=== PATIENT | male | born 1965 | race Caucasian/White ===

== ENCOUNTER 2018-02-23 20:06 | Observation (INO) | payer OTHER, SELFPAY ==
--- NOTE | 2018-02-23 21:01 | RAD REPORT ---
EXAM DESCRIPTION: CT - Head Brain Wo Cont - 02/23/2018 8:40 pm CLINICAL HISTORY: Syncope COMPARISON: None. TECHNIQUE: Computed axial tomography of the head was obtained. IV contrast was not requested. All CT scans are performed using dose optimization technique as appropriate and may include automated exposure control or mA/KV adjustment according to patient size. FINDINGS: An intracranial bleed is not seen . The ventricles are normal in caliber. No extra-axial fluid collection is noted. Fluid within the sinuses/ mastoids is not seen. IMPRESSION: No acute intracranial abnormality is seen. If patient's symptoms persist MRI of the bra in would be recommended.
--- NOTE | 2018-02-23 21:02 | RAD REPORT ---
EXAM DESCRIPTION: Hiral Single View02/23/2018 8:47 pm CLINICAL HISTORY: Chest pain COMPARISON: 2016 FINDINGS: The lungs appear clear of acute infiltrate. The heart is normal size. Postsurgical change s involve the chest IMPRESSION: No acute abnormalities displayed
[2018-02-23 21:07] LABS: Absolute Lymphocytes (CBC) 0.7 K/uL (0.7-4.9); Absolute Monocytes 0.4 K/uL (0.1-1.3); Absolute Neutrophil 10.4 K/uL (1.8-8.0); Basophils % 0.2 % (0-1.3); Eosinophils % 0.5 % (0-4.4); Hematocrit 46.2 % (39.6-49.0); MCV 92.5 fL (80-100); MPV 8.1 fL (7.6-11.3); Monocytes % 3.8 % (3.3-12.3); RBC Red Blood Cell Count 4.99 M/uL (4.33-5.43)
[2018-02-23 21:13] LABS: Protime INR 1.08
[2018-02-23 21:31] LABS: Bicarbonate 28 mEq/L (21-31); Glucose Level 181 mg/dL (65-120); Potassium 4.2 mEq/L (3.6-5.0); Sodium Level 136 mEq/L (135-145)
[2018-02-23 21:36] LABS: Blood Morphology Comment NOT SEEN (NOT SEEN); Platelet Estimate ADEQ; Urine White Blood Cell Casts OK
[2018-02-23 21:37] LABS: ALT/SGPT 24 IU/L (10-60); AST/SGOT 19 IU/L (10-42); Albumin 4.1 g/dL (3.2-5.5); Alkaline Phosphatase 91 IU/L (42-121); BUN Blood Urea Nitrogen 19 mg/dL (6-20); Bilirubin Direct 0.1 mg/dL (0-0.2); Bilirubin Total 0.9 mg/dL (0.3-1.2); Creatine Phosphokinase 110 IU/L (22-269); Magnesium 1.8 mg/dL (1.8-2.5); Protein, Total 7.2 g/dL (6.0-8.3)
--- NOTE | 2018-02-23 21:40 | EDPHYS ---
Physician Documentation [facility] Name: Maximiliano Springer Age: 52 yrs Sex: Male : 1965 Arrival Date: 02/23/2018 Time: 20:07 Bed 13 Private MD: ED Physician Abiodun Wallace HPI: 02/23 21:35 This 52 yrs old Male presents to ER via Ambulatory with complaints of Passed jr8 Out Prior To Arrival, Probable Seizure, Headache. 21:35 The patient has experienced syncope, became unresponsive. Onset: The symptoms/episode jr8 began/occurred acutely, today. Duration: This was a single episode, that lasted 5 minute(s). Context: the episode(s) was witnessed, by family, daughter, occurred at home, occurred while the patient was at rest, sitting, Just prior to the episode the patient experienced palpitations. Associated injury: The patient did not suffer any apparent associated injury. Associated signs and symptoms: The patient has no apparent associated signs or symptoms. Current symptoms: headache, that is mild. It is unknown whether or not the patient has had similar symptoms in the past. The patient has not recently seen a physician. Historical: - Allergies: 20:15 NKDA; aa1 - Home Meds: 20:15 aspirin 81 mg Oral TbEC 1 tab once daily [Active]; atorvastatin 40 mg Oral tab 1 tab aa1 once daily [Active]; lisinopril 20 mg Oral tab 1 tab once daily [Active]; metformin 500 mg Oral tr24 2 tabs once daily [Active]; - PMHx: 20:15 CAD; Diabetes - NIDDM; Hypertension; aa1 - PSHx: 20:15 CABG; Heart stents; aa1 - Immunization history:: Flu vaccine is not up to date. - Social history:: Smoking status: Patient/guardian denies using tobacco. ROS: 21:35 Eyes: Negative for injury, pain, redness, and discharge, ENT: Negative for injury, jr8 pain, and discharge, Neck: Negative for injury, pain, and swelling, Cardiovascular: Negative for chest pain, palpitations, and edema, Respiratory: Negative for shortness of breath, cough, wheezing, and pleuritic chest pain, Abdomen/GI: Negative for abdominal pain, nausea, vomiting, diarrhea, and constipation, Back: Negative for injury and pain, MS/Extremity: Negative for injury and deformity, Skin: Negative for injury, rash, and discoloration. 21:35 Neuro: Positive for headache, syncope, weakness. Exam: 21:35 Head/Face: Normocephalic, atraumatic. Eyes: Pupils equal round and reactive to light, jr8 extra-ocular motions intact. Lids and lashes normal. Conjunctiva and sclera are non-icteric and not injected. Cornea within normal limits. Periorbital areas with no swelling, redness, or edema. ENT: Nares patent. No nasal discharge, no septal abnormalities noted. Tympanic membranes are normal and external auditory canals are clear. Oropharynx with no redness, swelling, or masses, exudates, or evidence of obstruction, uvula midline. Mucous membranes moist. Neck: Trachea midline, no thyromegaly or masses palpated, and no cervical lymphadenopathy. Supple, full range of motion without nuchal rigidity, or vertebral point tenderness. No Meningismus. Cardiovascular: Regular rate and rhythm with a normal S1 and S2. No gallops, murmurs, or rubs. Normal PMI, no JVD. No pulse deficits. Respiratory: Lungs have equal breath sounds bilaterally, clear to auscultation and percussion. No rales, rhonchi or wheezes noted. No increased work of breathing, no retractions or nasal flaring. Abdomen/GI: Soft, non-tender, with normal bowel sounds. No distension or tympany. No guarding or rebound. No evidence of tenderness throughout. Back: No spinal tenderness. No costovertebral tenderness. Full range of motion. Skin: Warm, dry with normal turgor. Normal color with no rashes, no lesions, and no evidence of cellulitis. MS/ Extremity: Pulses equal, no cyanosis. Neurovascular intact. Full, normal range of motion. Neuro: Awake and alert, GCS 15, oriented to person, place, time, and situation. Cranial nerves II-XII grossly intact. Motor strength 5/5 in all extremities. Sensory grossly intact. Cerebellar exam normal. Normal gait. Vital Signs: 20:15 BP 107 / 81; Pulse 97; Resp 16; Temp 97.7(O); Pulse Ox 100% on R/A; Weight 68.49 kg; aa1 Height 5 ft. 7 in. (170.18 cm); Pain 7/10; 20:45 BP 113 / 76; Pulse 88; Resp 11; Pulse Ox 98% on R/A; aj1 21:21 BP 109 / 72; Pulse 95; Resp 18; Pulse Ox 99% ; aj1 22:50 BP 105 / 79; Pulse 94; Resp 16; Pulse Ox 98% on R/A; Pain 0/10; aa1 20:15 Body Mass Index 23.65 (68.49 kg, 170.18 cm) aa1 NIH Stroke Scale Scores: 20:45 NIHSS Score: 0 aj1 Yolanda Coma Score: 20:15 Eye Response: spontaneous(4). Verbal Response: oriented(5). Motor Response: obeys aa1 commands(6). Total: 15. MDM: 20:27 Patient medically screened. jr8 21:35 Data reviewed: vital signs, nurses notes, lab test result(s), EKG, radiologic studies, jr8 CT scan, plain films. Data interpreted: Pulse oximetry: on room air is 99 %. Interpretation: normal. Counseling: I had a detailed discussion with the patient and/or guardian regarding: the historical points, exam findings, and any diagnostic results supporting the discharge/admit diagnosis, lab results, radiology results, the need for further work-up and treatment in the hospital. Physician consultation: Jerry Corral MD was called at 21:37, was contacted at 21:37, regarding admission, to the telemetry unit. consult, patient's condition, and will see patient. ED course: Patient had arrested once before in the hospital from probably arrythmia prior to bypass surgery. Frederick palpitation like feeling prior to episode. Discussed with patient that although nothing acutely has been seen thus yet it would be best to observe over night at minimum with heart history to insure he remains stable. Patient agrees and will stay . 02/23 20:27 Order name: Basic Metabolic Panel; Complete Time: 21:39 02/23 20:27 Order name: BNP; Complete Time: 21:39 02/23 20:27 Order name: CBC with Diff; Complete Time: :39 02/23 20:27 Order name: CPK; Complete Time: 21:39 02/23 20:27 Order name: LFT's; Complete Time: 21:39 02/23 20:27 Order name: Magnesium; Complete Time: 21:39 02/23 20:27 Order name: PT-INR; Complete Time: 21:23 8 02/23 20:27 Order name: Troponin (emerg Dept Use Only); Complete Time: 21:41 02/23 20:27 Order name: XRAY Chest (1 view); Complete Time: 21:23 02/23 20:27 Order name: EKG; Complete Time: 20:28 jr8 02/23 20:27 Order name: Cardiac monitoring; Complete Time: 20:36 8 02/23 20:27 Order name: EKG - Nurse/Tech; Complete Time: 20:36 8 02/23 20:27 Order name: CT Head Brain wo Cont; Complete Time: 21:23 jr8 02/23 21:11 Order name: CBC Smear Scan; Complete Time: 21:39 EDLA 02/23 20:27 Order name: IV Saline Lock; Complete Time: 21:06 02/23 20:27 Order name: Labs collected and sent; Complete Time: 21:06 02/23 20:27 Order name: O2 Per Protocol; Complete Time: 20:36 02/23 20:27 Order name: O2 Sat Monitoring; Complete Time: 20:36 Administered Medications: No medications were administered Disposition: 02/24 09:15 Co-signature as Attending Physician, Abiodun Wallace MD I agree with the assessment and dina plan of care. Disposition: 02/23/18 21:39 Hospitalization ordered by Jerry Corral for Observation. Preliminary diagnosis is Syncope and collapse. - Bed requested for Telemetry/MedSurg (observation). - Status is Observation. aa1 - Condition is Stable. - Problem is new. - Symptoms have improved. UTI on Admission? No NIH Stroke Scale - NIH Stroke Score Date: 02/23/2018 Time: 20:45 Total Score = 0 1a. Level of Consciousness (LOC) - 0(Alert) 1b. Level of Consciousness (LOC) (Year \T\ Age) - 0(Both) 1c. LOC Commands (Open \T\ Closes Eyes/At Risk Paraprofessional) - 0(Both) 2. Best Gaze (Lateral Gaze Paresis) - 0(Normal) 3. Visual Field Loss - 0(No visual loss) 4. Facial Palsy - 0(Normal) 5a. Left Arm: Motor (10-second hold) - 0(No drift) 5b. Right Arm: Motor (10-second hold) - 0(No drift) 6a. Left Leg: Motor (5-second hold - always test supine) - 0(No drift) 6b. Right Leg: Motor (5-second hold - always test supine) - 0(No drift) 7. Limb Ataxia (finger/nose \T\ heel/garcía - test with eyes open) - 0(Absent) 8. Sensory Loss (pinprick arms/legs/face) - 0(Normal) 9. Best Language: Aphasia (description/naming/reading) - 0(No aphasia) 10. Dysarthria (speech clarity - read or repeat words) - 0(Normal) 11. Extinction and Inattention (visual/tactile/auditory/spatial/personal) - 0(No abnormality) Initials: aj1 Signatures: Dispatcher [employer] Yi Lord, RN RN Esperanza Acosta RN RN aa1 Abiodun Wallace MD MD cha Roszak, Josh, PA PA jr8
--- NOTE | 2018-02-23 21:40 | ER ---
Nurse's Notes [facility] Name: Maximiliano Springer Age: 52 yrs Sex: Male : 1965 Arrival Date: 02/23/2018 Time: 20:07 Bed 13 Private MD: Diagnosis: Syncope and collapse Presentation: 02/23 20:11 Presenting complaint: Patient states: he was watching TV and passed out. States he just aa1 remembers waking up and his drink was spilled. Daughter states pt stiffened up and would not respond. Reports episode lasted less than 2 mins and pt then vomited afterwards. Transition of care: patient was not received from another setting of care. Onset of symptoms was February 23, 2018 at 19:20. Care prior to arrival: None. 20:11 Method Of Arrival: Ambulatory aa1 20:11 Acuity: SANDRA 3 aa1 Triage Assessment: 20:15 General: Appears in no apparent distress. comfortable, Behavior is calm, cooperative, aa1 appropriate for age. Historical: - Allergies: 20:15 NKDA; aa1 - Home Meds: 20:15 aspirin 81 mg Oral TbEC 1 tab once daily [Active]; atorvastatin 40 mg Oral tab 1 tab aa1 once daily [Active]; lisinopril 20 mg Oral tab 1 tab once daily [Active]; metformin 500 mg Oral tr24 2 tabs once daily [Active]; - PMHx: 20:15 CAD; Diabetes - NIDDM; Hypertension; aa1 - PSHx: 20:15 CABG; Heart stents; aa1 - Immunization history:: Flu vaccine is not up to date. - Social history:: Smoking status: Patient/guardian denies using tobacco. Screenin:45 Abuse screen: Denies threats or abuse. Denies injuries from another. aj1 20:45 Nutritional screening: No deficits noted. Tuberculosis screening: No symptoms or risk aj1 factors identified. Assessment: 20:45 General: Appears in no apparent distress. comfortable, Behavior is calm, cooperative, aj1 appropriate for age. Pain: Denies pain. Neuro: Level of Consciousness is awake, alert, obeys commands, Oriented to person, place, time, situation, Junior Web Designer are equal bilaterally Moves all extremities. Full function Speech is normal, Facial symmetry appears normal, Pupils are PERRLA, Intact Reports headache a syncopal episode Denies blurred vision paresthesias numbness diplopia. Cardiovascular: Reports chest pain, nausea, palpitations, chest pain lasted for 2 to 3 minutes after syncopal episode Heart tones S1 S2 present Patient's skin is warm and dry. Rhythm is regular. Respiratory: Airway is patent Respiratory effort is even, unlabored, Respiratory pattern is regular, symmetrical, Breath sounds are clear bilaterally. GI: No signs and/or symptoms were reported involving the gastrointestinal system. : No signs and/or symptoms were reported regarding the genitourinary system. EENT: No signs and/or symptoms were reported regarding the EENT system. Derm: No signs and/or symptoms reported regarding the dermatologic system. Skin is pink, warm \T\ dry. normal. Musculoskeletal: No signs and/or symptoms reported regarding the musculoskeletal system. Circulation, motion, and sensation intact. 21:20 Reassessment: Patient appears in no apparent distress at this time. No changes from aj1 previously documented assessment. Patient and/or family updated on plan of care and expected duration. Pain level reassessed. Patient is alert, oriented x 3, equal unlabored respirations, skin warm/dry/pink. 22:54 Reassessment: Patient appears in no apparent distress at this time. Patient is alert, aa1 oriented x 3, equal unlabored respirations, skin warm/dry/pink. Report given to Aracely on 4th floor Patient states feeling better. Vital Signs: 20:15 BP 107 / 81; Pulse 97; Resp 16; Temp 97.7(O); Pulse Ox 100% on R/A; Weight 68.49 kg; aa1 Height 5 ft. 7 in. (170.18 cm); Pain 7/10; 20:45 BP 113 / 76; Pulse 88; Resp 11; Pulse Ox 98% on R/A; aj1 21:21 BP 109 / 72; Pulse 95; Resp 18; Pulse Ox 99% ; aj1 22:50 BP 105 / 79; Pulse 94; Resp 16; Pulse Ox 98% on R/A; Pain 0/10; aa1 20:15 Body Mass Index 23.65 (68.49 kg, 170.18 cm) aa1 Yolanda Coma Score: 20:15 Eye Response: spontaneous(4). Verbal Response: oriented(5). Motor Response: obeys aa1 commands(6). Total: 15. NIH Stroke Scale Scores: 20:45 NIHSS Score: 0 aj1 ED Course: 20:07 Patient arrived in ED. as 20:14 Triage completed. aa1 20:15 Arm band placed on left wrist. Patient placed in an exam room, on a stretcher. aa1 20:27 Ace Luther PA is PHCP. jr8 20:27 Abiodun Wallace MD is Attending Physician. jr8 20:36 EKG done, by ED staff, reviewed by Ace ACEVEDO. dh3 20:[address] via wheelchair. nj 20:40 CT completed. Patient tolerated procedure well. Patient moved back from CT. nj 20:40 CT Head Brain wo Cont In Process Unspecified. EDMS 20:45 X-ray completed. Patient tolerated procedure well. ml 20:45 Karen Harley RN is Primary Nurse. aj1 20:45 Patient moved back from radiology. ml 20:45 Patient has correct armband on for positive identification. Bed in low position. Call aj1 light in reach. Side rails up X 1. Seizure precautions initiated. conveyor monitor on. Pulse ox on. NIBP on. 20:45 No provider procedures requiring assistance completed. aj1 20:46 XRAY Chest (1 view) In Process Unspecified. EDMS 21:39 Jerry Corral MD is Hospitalizing Provider. jr8 22:05 Report given to LAYTON Mata. aj1 22:54 Patient admitted, IV remains in place. aa1 Administered Medications: No medications were administered Outcome: 21:39 Decision to Hospitalize by Provider. jr8 23:02 Patient left the ED. aa1 NIH Stroke Scale - NIH Stroke Score Date: 02/23/2018 Time: 20:45 Total Score = 0 1a. Level of Consciousness (LOC) - 0(Alert) 1b. Level of Consciousness (LOC) (Year \T\ Age) - 0(Both) 1c. LOC Commands (Open \T\ Closes Eyes/Stage Builder) - 0(Both) 2. Best Gaze (Lateral Gaze Paresis) - 0(Normal) 3. Visual Field Loss - 0(No visual loss) 4. Facial Palsy - 0(Normal) 5a. Left Arm: Motor (10-second hold) - 0(No drift) 5b. Right Arm: Motor (10-second hold) - 0(No drift) 6a. Left Leg: Motor (5-second hold - always test supine) - 0(No drift) 6b. Right Leg: Motor (5-second hold - always test supine) - 0(No drift) 7. Limb Ataxia (finger/nose \T\ heel/garcía - test with eyes open) - 0(Absent) 8. Sensory Loss (pinprick arms/legs/face) - 0(Normal) 9. Best Language: Aphasia (description/naming/reading) - 0(No aphasia) 10. Dysarthria (speech clarity - read or repeat words) - 0(Normal) 11. Extinction and Inattention (visual/tactile/auditory/spatial/personal) - 0(No abnormality) Initials: aj1 Signatures: Dispatcher [employer] Karen Gordon RN RN aj1 Esperanza Marshall RN RN aa1 Paul, Neha Peña, Ace Boothe PA PA jr8 Matthias Jennings Deanna 3
[2018-02-23] MEDS ORDERED: ALPRAZOLAM 0.25 MG TABLET PO PRN (22:12)
[2018-02-23] MEDS ORDERED: ACETAMINOPHEN 500 MG TAB PO PRN (22:12)
[2018-02-23] MEDS ORDERED: MORPHINE 4 MG/ML SYR IV PRN (22:12)
[2018-02-23 23:18] VITALS: O2SAT 98
[2018-02-23 23:43] VITALS: BMI 23.5
--- NOTE | 2018-02-24 05:08 | P.HP ---
Certification for Inpatient Patient admitted to: Observation With expected LOS: <2 Midnights Patient will require the following post-hospital care: None Practitioner: I am a practitioner with admitting privileges, knowledge of patient current condition, hospital course, and medical plan of care. Services: Services provided to patient in accordance with Admission requirements found in Title 42 Section 412.3 of the Code of Federal Regulations Patient History Date of Service: 02/23/18 Reason for admission: Syncope with possible seizure History of Present Illness: Patient is a 52-year-old gentleman who comes into the hospital after a syncopal event. Patient states he was at his apartment watching television when he suddenly passed out. He apparently bit his tongue & his arms were extended very tightly according to his family. Patient's was brought into the emergency room for further evaluation. In the emergency room he had EKG and troponins which were negative. He was monitored closely and he will be admitted for observation. Patient has had similar episode occur in the past. A few years ago he had a cardiac catheterization on a Wednesday and was told that he would need bypass surgery on Wednesday. He was discharged home and he decided to stay with a family friend in [place] as he was getting bypass surgery on Wednesday. Wednesday morning while watching TV he had a cardiac arrest. He was taken to [facility] were he had a three-vessel bypass. He states he had an arrhythmia but he does not know what type. He was not offered pacemaker/defibrillator. He does not remember having a life vest. He recently saw his air conditioning mechanic industrial in [place] and had a stress test which was negative. He does not know how well his heart is functioning but he was recently put on Toprol by his air conditioning mechanic industrial in [place]. At this time he will be admitted to the hospital for further evaluation. Allergies No Known Drug Allergies Allergy (Verified 02/29/16 21:52) Unknown Home Medications: Aspirin Chewable [Aspirin Chewable*] 81 mg PO DAILY 02/29/16 Atorvastatin Calcium 40 mg PO DAILY 02/29/16 Carvedilol [Coreg*] 25 mg PO BID 02/29/16 Isosorbide Mononitrate [Isosorbide Mononitrate ER] 30 mg PO DAILY 02/29/16 Lisinopril 20 mg PO DAILY 02/29/16 Metformin HCl 500 mg PO BID 04/16/16 - Past Medical/Surgical History Has patient received pneumonia vaccine in the past: No Diabetic: Yes -: HTN -: DM -: Hyperlipidemia -: Coronary artery disease -: Cardiac arrhythmia/cardiac arrest -: heart stent -: triple by-pass - Family History Father Medical History: Stroke Mother Notes: no medical hx - Social History Smoking Status: Never smoker Alcohol use: No CD- Drugs: No Caffeine use: No Place of Residence: Home Review of Systems 10-point ROS is otherwise unremarkable Physical Examination - Vital Signs Temperature: 98.4 F Blood Pressure: 99/67 Pulse: 88 Respirations: 18 Pulse Ox (%): 100 - Physical Exam General: Alert, In no apparent distress, Oriented x3 HEENT: Atraumatic, PERRLA, Mucous membr. moist/pink, EOMI, Sclerae nonicteric Neck: Supple, 2+ carotid pulse no bruit, No LAD, Without JVD or thyroid abnormality Respiratory: Clear to auscultation bilaterally, Normal air movement Cardiovascular: Regular rate/rhythm, Normal S1 S2, No murmurs Gastrointestinal: Normal bowel sounds, Soft and benign, Non-distended, No tenderness Musculoskeletal: No clubbing, No swelling, No tenderness Integumentary: No rashes Neurological: Normal gait, Normal speech, Normal strength at 5/5 x4 extr, Normal tone, Sensation intact, Cranial nerves 3-12 intact, Normal affect Lymphatics: No axilla or inguinal lymphadenopathy - Studies Laboratory Data (last 24 hrs) 02/23/18 20:55: PT 12.8 H, INR 1.08 02/23/18 20:55: WBC 11.6 H, Hgb 16.0, Hct 46.2, Plt Count 182 02/23/18 20:55: B-Natriuretic Peptide 34 02/23/18 20:55: Sodium 136, Potassium 4.2, BUN 19, Creatinine 0.81, Glucose 181 H, Magnesium 1.8, Total Bilirubin 0.9, AST 19, ALT 24, Alkaline Phosphatase 91 Assessment & Plan - Problems (Diagnosis) (1) Syncope Current Visit: Yes Status: Acute (2) Seizure disorder Current Visit: Yes Status: Acute (3) Coronary artery disease Current Visit: Yes Status: Acute (4) History of heart bypass surgery Current Visit: Yes Status: Acute (5) History of cardiac arrest Current Visit: Yes Status: Acute - Plan Plan: 1. Will monitor him on telemetry 2. Cardiology consultation 3. Echocardiogram 4. Will also do an EEG 5. Continue home cardiac meds including beta-everton and anti-platelet therapy 6. Monitor hemodynamics closely 7. GI and DVT prophylaxis - Advance Directives Does patient have a Living Will: No Does patient have a Durable POA for Healthcare: No - Code Status/Comfort Care Code Status Assessed: Yes Code Status: Full Code Critical Care: No Time Spent Managing PTS Care (In Minutes): 50
[2018-02-24] MEDS ORDERED: PNEUMOCOCCAL VACCINE 0.5 ML IMVAC ONE (07:00)
--- NOTE | 2018-02-24 07:03 | EKG ---
Test Date: 2018-02-23 Test Time: 20:30:55 Orthopedic Nurse Practitioner: JD MEASUREMENT RESULTS: Intervals: Rate: 93 KS: 174 QRSD: 76 QT: 350 QTc: 435 [place]: P: 66 KS: 174 QRS: 15 T: 67 INTERPRETIVE STATEMENTS: Normal sinus rhythm Possible Left atrial enlargement Anterior T inversion, anterior ischemia Abnormal ECG Compared to ECG 03/01/2016 05:40:07 T waves inverted now in anterior leads Electronically Signed On 02-24-18 07:02:29 CDT by Nba Brand
[2018-02-24] MEDS ORDERED: METOPROLOL TAR 50 MG TAB PO SCH (09:00)
[2018-02-24] MEDS ORDERED: ATORVASTATIN 40 MG TAB PO SCH (09:00)
[2018-02-24] MEDS ORDERED: ISOSORBIDE MONO SR 30 MG TAB PO SCH (09:00)
[2018-02-24] MEDS ORDERED: METFORMIN HCL 500 MG TAB PO SCH (09:00)
[2018-02-24] MEDS ORDERED: LISINOPRIL 10 MG TAB PO SCH (09:00)
[2018-02-24] MEDS ORDERED: ASPIRIN EC 81 MG TAB PO SCH (09:00)
--- NOTE | 2018-02-24 09:42 | RAD REPORT ---
EXAM DESCRIPTION: MRI - Brain Wo Cont - 02/24/2018 8:34 am CLINICAL HISTORY: Seizure COMPARISON: February 23, [address] TECHNIQUE: Axial, sagittal, and coronal magnetic images of the brain were obtained. Contrast was not requested FINDINGS: No abnormal signal is present within the brain. The hippocampal gyri are normal caliber an d signal Diffusion-weighted/ADC mapping does not reveal evidence of acute infarction. The ventricles are normal caliber. An extra-axial fluid collection is not present The sinuses and mastoids are clear. IMPRESSION: Unremarkable unenhanced brain MRI
[2018-02-24 12:19] VITALS: BP 108/69
--- NOTE | 2018-02-24 12:27 | ECHO ---
HEIGHT: 5 ft 7 in WEIGHT: 150 lb 2 oz DATE OF STUDY: 02/24/[address]: Jerry Corral MD 2-DIMENSIONAL: YES M.MODE: YES DOPPLER: YES COLOR FLOW: YES TDS: PORTABLE: DEFINITY: BUBBLE STUDY: DIAGNOSIS: CONGESTIVE HEART FAILURE CARDIAC HISTORY: CATHERIZATION: YES SURGERY: YES PROSTHETIC VALVE: NO PACEMAKER: NO MEASUREMENTS (cm) DIASTOLIC (NORMALS) SYSTOLIC (NORMALS) IVSd 0.9 (0.6-1.2) LA Diam 3.0 (1.9-4.0) LVEF 72% LVIDd 2.9 (3.5-5.7) LVIDs 1.7 (2.0-3.5) %FS 39% LVPWd 0.9 (0.6-1.2) Ao Diam 3.0 (2.0-3.7) 2 DIMENSIONAL ASSESSMENT: RIGHT ATRIUM: NORMAL LEFT ATRIUM: NORMAL RIGHT VENTRICLE: NORMAL LEFT VENTRICLE: NORMAL TRICUSPID VALVE: NORMAL MITRAL VALVE: NORMAL PULMONIC VALVE: NORMAL AORTIC VALVE: NORMAL PERICARDIAL EFFUSION: NONE AORTIC ROOT: NORMAL LEFT VENTRICULAR WALL MOTION: PARADOXICL SEPTAL MOTION DOPPLER/COLOR FLOW: NORMAL COMMENTS: NORMAL LEFT VENTRICULAR EJECTION FRACTION WITH PARADOXICAL SEPTAL MOTION. OTHERWISE NORMAL 2-DIMENSIONAL ECHOCARDIOGRAM. TECHNOLOGIST: ANTHONY WILSON
--- NOTE | 2018-02-24 13:55 | EEG ---
CHART: [id number] TEST ID#: [id number] DATE OF STUDY: 02/24/2018 THE EEG WAS RECORDED IN THE EEG LABORATORY ON A 17 CHANNEL MACHINE. ELECTRODES WERE APPLIED IN THE USUAL MANNER USING THE INTERNATIONAL 10-20 SYSTEM. THE WAKING BACKGROUND RHYTHM IN THIS RECORD CONSISTS OF WELL DEVELOPED AND WELL ORGANIZED WAVES OF 9.5 HZ., MAXIMAL IN THE POSTERIOR HEAD REGIONS WHICH ATTENUATE NORMALLY WITH EYE OPENING. [id number] HZ ACTIVITY IS EXPRESSED IN THE FRONTAL REGIONS. MODERATE VOLTAGE 5-7 HZ ACTIVITY MIXED WITH 10.5-3 HZ ACTIVITY IS EXPRESSED IN THE FRONTAL REGIONS. THERE ARE NO FOCAL OR LATERALIZING FEATURES. NO EPILEPTIFORM ACTIVITY APPEARS. SLEEP OCCURRED NATURALLY. IN ADDITION NORMAL SLEEP PATTERNS ARE PRESENT. HYPERVENTILATION WAS NOT PEFORMED. PHOTIC STIMULATION PRODUCED POOR DRIVING BILATERALLY. IMPRESSION: THIS IS A MILDLY ABNORMAL EEG DUE TO A MILDLY SLOW BACKGROUND. THIS IS A NON-SPECIFIC FINDING INDICATING THE PRSENCE OF A MILD DIFFUSE DISTURBANCE IN CEREBRAL DYSFUNCTION.
[2018-02-24 14:58] VITALS: TEMP 98.3
--- NOTE | 2018-02-24 16:32 | P.SSS ---
Patient History Date of Service: 02/24/18 Primary Care Provider: DAVID Reason for admission: Syncope with possible seizure History of Present Illness: Patient is a 52-year-old gentleman who comes into the hospital after a syncopal event. Patient states he was at his apartment watching television when he suddenly passed out. He apparently bit his tongue & his arms were extended very tightly according to his family. Patient's was brought into the emergency room for further evaluation. In the emergency room he had EKG and troponins which were negative. He was monitored closely and he will be admitted for observation. Patient has had similar episode occur in the past. A few years ago he had a cardiac catheterization on a Wednesday and was told that he would need bypass surgery on Wednesday. He was discharged home and he decided to stay with a family friend in [place] as he was getting bypass surgery on Wednesday. Wednesday morning while watching TV he had a cardiac arrest. He was taken to [facility] were he had a three-vessel bypass. He states he had an arrhythmia but he does not know what type. He was not offered pacemaker/defibrillator. He does not remember having a life vest. He recently saw his shells inspector in [place] and had a stress test which was negative. He does not know how well his heart is functioning but he was recently put on Toprol by his shells inspector in [place]. At this time he will be admitted to the hospital for further evaluation. Allergies No Known Drug Allergies Allergy (Verified 02/29/16 21:52) Unknown Home Medications: Aspirin Chewable [Aspirin Chewable*] 81 mg PO DAILY 02/29/16 Atorvastatin Calcium 40 mg PO DAILY 02/29/16 Carvedilol [Coreg*] 25 mg PO BID 02/29/16 Isosorbide Mononitrate [Isosorbide Mononitrate ER] 30 mg PO DAILY 02/29/16 Lisinopril 20 mg PO DAILY 02/29/16 Metformin HCl 500 mg PO BID 02/29/16 - Past Medical/Surgical History Has patient received pneumonia vaccine in the past: No Diabetic: Yes -: HTN -: DM -: Hyperlipidemia -: Coronary artery disease -: Cardiac arrhythmia/cardiac arrest -: heart stent -: triple by-pass - Family History Father -: Stroke Mother Notes: no medical hx - Social History Smoking Status: Never smoker Alcohol use: No CD- Drugs: No Caffeine use: No Place of Residence: Home Review of Systems 10-point ROS is otherwise unremarkable Physical Examination - Vital Signs Temperature: 98.3 F Blood Pressure: 108/69 Pulse: 88 Respirations: 16 Pulse Ox (%): 94 - Physical Exam General: Alert, In no apparent distress, Oriented x3 HEENT: Atraumatic, PERRLA, Mucous membr. moist/pink, EOMI, Sclerae nonicteric Neck: Supple, 2+ carotid pulse no bruit, No LAD, Without JVD or thyroid abnormality Respiratory: Clear to auscultation bilaterally, Normal air movement Cardiovascular: Regular rate/rhythm, Normal S1 S2 Gastrointestinal: Normal bowel sounds, No tenderness Musculoskeletal: No tenderness Integumentary: No rashes Neurological: Normal gait, Normal speech, Normal strength at 5/5 x4 extr, Normal tone, Normal affect Lymphatics: No axilla or inguinal lymphadenopathy - Studies Laboratory Data (last 24 hrs) 02/23/18 20:55: PT 12.8 H, INR 1.08 02/23/18 20:55: WBC 11.6 H, Hgb 16.0, Hct 46.2, Plt Count 182 02/23/18 20:55: B-Natriuretic Peptide 34 02/23/18 20:55: Sodium 136, Potassium 4.2, BUN 19, Creatinine 0.81, Glucose 181 H, Magnesium 1.8, Total Bilirubin 0.9, AST 19, ALT 24, Alkaline Phosphatase 91 - Diagnosis (Problem(s)) (1) Syncope Onset Date: 02/24/18 Status: Acute Qualifiers: Syncope type: vasovagal syncope Qualified Code(s): R55 - Syncope and collapse (2) Coronary artery disease Onset Date: 02/24/18 Status: Chronic Qualifiers: Coronary Disease-Associated Artery/Lesion type: [place] artery [place] vs. transplanted heart: [place] heart Associated angina: without angina Qualified Code(s): I25.10 - Atherosclerotic heart disease of [place] coronary artery without angina pectoris (3) History of cardiac arrest Status: Chronic (4) History of heart bypass surgery Status: Chronic (5) Seizure disorder Onset Date: 02/24/18 Status: Chronic Treatment Summary: Pt initally admitted to the hospital for Syncope. -Workup done with ECHO and carotid and EEG which was all WNL without any acute abnormality -Cardiology consulted given the history of cardiac Arrest. Reccs that pt most likely had Vasovagal syncope. Pt to be discharged home and resume all his medication. Stress test 1 year ago was negative as well. -Neurology consulted. Reccs Outpt f/u EEG was Without any acute abnormality. To continue on home medications -Pt was then discharge home understable condition. - Disposition Disposition: ROUTINE DISCHARGE Condition: GOOD Patient Discharge Instructions: Please f/u with PCP and neurology in 1 to 2 week post discharge. No new medication. Please continue taking all medication as prescribed. Diet: Regular Activity: Ad chema
--- NOTE | 2018-02-26 11:56 | CON ---
Date of Consultation: 02/24/[address] patient admitted to Dr. Corral's service on 02/23/2018. I saw the patient on 02/24/2018. Reason For Consultation: Syncope. History Of Present Illness: Mr. Springer is a 52-year-old white male, has a very extensive past medic al history. His initial cardiac issues began as a cardiac arrest prolonged with some encephalopathy as a residual. Has a history of CABG. Has history of PCIs in 2015. He has a history of dyslipidemi a, hypertension, coronary artery disease, and diabetes. Never had congestive heart failure as far as we know. Apparently became very nauseated after a meal and had a syncopal episode. Apparently, whe n he woke up, he was stiffened, was slightly postictal. Denied palpitation, chest pain, nausea, vomi ting, diaphoresis, PND, orthopnea, or pedal edema. Denied any fever or chills. Associated with his symptoms was diarrhea before this happened. Past Medical History: As stated above. Allergies: NONE. Review of Systems: Negative. Social History: Negative. Family History: Negative. Medications: Include Lipitor, aspirin, Coreg, Imdur, lisinopril, and metformin. Physical Examination: Vital Signs: Stable. He was afebrile. HEENT: Negative. Neck: Supple without any bruit, lymphadenopathy, JVD, or thyromegaly. Chest: Clear to auscultation and percussion. Cardiac: Revealed a regular rhythm and rate without any murmurs, gallops, or rubs. Abdomen: Benign. Extremities: Revealed No clubbing, cyanosis, or edema. Diagnostic Data: EKG was normal. Troponin was normal. Chest x-ray was negative. CT of his head wa s negative. White count was 11,000. Glucose was 181. Impression And Plan: 1.Syncope, more likely secondary to a vasovagal reaction. He had nausea. He had diarrhea before it happened. He knew what was going to happen. It is remotely possible that this is a seizure disorde r. An EEG and MRI are pending. An echocardiogram is pending as well. 2.History of coronary artery disease, status post coronary artery bypass grafting and stents. He david d a negative Cardiolite in January [address] Sampson at [facility]. I would not recommend any furth er cardiac workup in that regard, and I would definitely continue his medication including Lipitor as pirin, Coreg, Imdur, and lisinopril. 3.Diabetes, well controlled on metformin. 4.Hypertension. 5.Dyslipidemia. I will leave the discharge up to Dr. Corral and Neurology. I will review the echocar diogram later. CHARANJIT/LUCI Voice ID: [id number] Report ID: [id number]
--- NOTE | 2018-02-27 22:50 | EKG ---
Test Date: 2018-02-24 Test Time: 10:40:33 [address] [place]: [place] MEASUREMENT RESULTS: Intervals: Rate: 87 CA: 146 QRSD: 82 QT: 346 QTc: 416 [place]: P: 19 CA: 146 QRS: 20 T: 69 INTERPRETIVE STATEMENTS: Normal sinus rhythm Normal ECG Compared to ECG 02/23/2018 20:30:55 Possible ischemia no longer present Electronically Signed On 02-27-18 22:49:54 CDT by Nba Brand
== END 2018-02-24 16:07 | disposition home or self-care (01) ==
LOC: ER 20:06 → ERHOLD 21:39 → 4TH 22:53
PROVIDERS: ADMIT Physician Assistant; ATTEND Hospitalist
DX: R55 Syncope and collapse (principal); I25.10 Atherosclerotic heart disease of native coronary artery without angina pectoris; I10 Essential (primary) hypertension; G40.909 Epilepsy, unspecified, not intractable, without status epilepticus; Z79.82 Long term (current) use of aspirin; Z95.1 Presence of aortocoronary bypass graft; Z95.5 Presence of coronary angioplasty implant and graft
CPT/HCPCS: 36415; 70450; 70551; 71045; 80048; 80061; 80076; 82550; 82962; 83735; 83880; 84484; 85025; 85610; 93005; 93306; 95819; 99284; G0378

== ENCOUNTER 2018-02-25 03:58 | Emergency (ER) | payer SELFPAY ==
[2018-02-25] MEDS ORDERED: NA CHLORIDE 0.9% 1,000 ML ONE (04:20)
[2018-02-25 05:23] LABS: Absolute Monocytes 0.5 K/uL (0.1-1.3); Absolute Neutrophil 3.7 K/uL (1.8-8.0); Basophils % 0.4 % (0-1.3); Eosinophils % 1.5 % (0-4.4); Hematocrit 41.6 % (39.6-49.0); Lymphocytes % 19.4 % (15.3-44.8); MCH 31.8 pg (27.0-35.0); MCV 94.2 fL (80-100); MPV 8.9 fL (7.6-11.3); RBC Red Blood Cell Count 4.41 M/uL (4.33-5.43)
[2018-02-25 05:28] LABS: Protime INR 1.13
[2018-02-25 05:40] LABS: Bicarbonate 27 mEq/L (21-31); Glucose Level 171 mg/dL (65-120); Potassium 3.2 mEq/L (3.6-5.0); Sodium Level 136 mEq/L (135-145)
[2018-02-25 05:51] LABS: ALT/SGPT 23 IU/L (10-60); AST/SGOT 23 IU/L (10-42); Albumin 3.7 g/dL (3.2-5.5); Alkaline Phosphatase 75 IU/L (42-121); BUN Blood Urea Nitrogen 21 mg/dL (6-20); Bilirubin Direct 0.1 mg/dL (0-0.2); Bilirubin Total 0.8 mg/dL (0.3-1.2); CKMB Creatine Kinase MB 1.6 ng/ml (0.3-4.0); Creatine Phosphokinase 90 IU/L (22-269); Glomerular Filtration Rate > 90 mL/min (=/>90); Magnesium 1.8 mg/dL (1.8-2.5); Protein, Total 6.7 g/dL (6.0-8.3)
--- NOTE | 2018-02-25 06:29 | EDPHYS ---
Physician Documentation [facility] Name: Maximiliano Springer Age: 52 yrs Sex: Male : 1965 Arrival Date: 02/25/2018 Time: 04:03 Bed 8 Private MD: ED Physician Abiodun Wallace HPI: 02/25 04:54 This 52 yrs old Male presents to ER via Ambulatory with complaints of Fall dina Injury, Rib Pain, Head Pain. 04:54 Details of fall: The patient fell from an upright position. Onset: The symptoms/episode dina began/occurred just prior to arrival. Associated injuries: The patient sustained injury to the head, anterior aspect of right upper chest, right lateral anterior chest, right lateral posterior chest and right breast, decreased range of motion, painful injury. Severity of symptoms: At their worst the symptoms were mild, in the emergency department the symptoms are unchanged. The patient has not experienced similar symptoms in the past. Historical: - Allergies: 04:12 NKDA; ao - Home Meds: 04:12 aspirin 81 mg Oral TbEC 1 tab once daily [Active]; atorvastatin 40 mg Oral tab 1 tab ao once daily [Active]; lisinopril 20 mg Oral tab 1 tab once daily [Active]; metformin 500 mg Oral tr24 2 tabs once daily [Active]; - PMHx: 04:12 CAD; Diabetes - NIDDM; Hypertension; ao - PSHx: 04:12 triple bypass; ao - Immunization history:: Adult Immunizations up to date. - Social history:: Smoking status: Patient/guardian denies using tobacco. - Family history:: not pertinent. ROS: 04:54 Constitutional: Negative for fever, chills, and weight loss, Eyes: Negative for injury, dina pain, redness, and discharge, ENT: Negative for injury, pain, and discharge, Neck: Negative for injury, pain, and swelling, Cardiovascular: Negative for chest pain, palpitations, and edema, Abdomen/GI: Negative for abdominal pain, nausea, vomiting, diarrhea, and constipation, Back: Negative for injury and pain, : Negative for injury, bleeding, discharge, and swelling, MS/Extremity: Negative for injury and deformity, Skin: Negative for injury, rash, and discoloration, Psych: Negative for depression, anxiety, suicide ideation, homicidal ideation, and hallucinations, Allergy/Immunology: Negative for hives, rash, and allergies, Endocrine: Negative for neck swelling, polydipsia, polyuria, polyphagia, and marked weight changes, Hematologic/Lymphatic: Negative for swollen nodes, abnormal bleeding, and unusual bruising. 04:54 Neuro: Positive for headache, near syncope. Exam: 04:54 Constitutional: This is a well developed, well nourished patient who is awake, alert, dina and in no acute distress. Head/Face: Normocephalic, atraumatic. Eyes: Pupils equal round and reactive to light, extra-ocular motions intact. Lids and lashes normal. Conjunctiva and sclera are non-icteric and not injected. Cornea within normal limits. Periorbital areas with no swelling, redness, or edema. ENT: Nares patent. No nasal discharge, no septal abnormalities noted. Tympanic membranes are normal and external auditory canals are clear. Oropharynx with no redness, swelling, or masses, exudates, or evidence of obstruction, uvula midline. Mucous membranes moist. Neck: Trachea midline, no thyromegaly or masses palpated, and no cervical lymphadenopathy. Supple, full range of motion without nuchal rigidity, or vertebral point tenderness. No Meningismus. Cardiovascular: Regular rate and rhythm with a normal S1 and S2. No gallops, murmurs, or rubs. Normal PMI, no JVD. No pulse deficits. Respiratory: Lungs have equal breath sounds bilaterally, clear to auscultation and percussion. No rales, rhonchi or wheezes noted. No increased work of breathing, no retractions or nasal flaring. Abdomen/GI: Soft, non-tender, with normal bowel sounds. No distension or tympany. No guarding or rebound. No evidence of tenderness throughout. Back: No spinal tenderness. No costovertebral tenderness. Full range of motion. Male : Normal genitalia with no discharge or lesions. Skin: Warm, dry with normal turgor. Normal color with no rashes, no lesions, and no evidence of cellulitis. MS/ Extremity: Pulses equal, no cyanosis. Neurovascular intact. Full, normal range of motion. Neuro: Awake and alert, GCS 15, oriented to person, place, time, and situation. Cranial nerves II-XII grossly intact. Motor strength 5/5 in all extremities. Sensory grossly intact. Cerebellar exam normal. Normal gait. Psych: Awake, alert, with orientation to person, place and time. Behavior, mood, and affect are within normal limits. 04:54 Chest/axilla: Inspection: normal, Palpation: tenderness, that is mild, of the right lateral anterior chest and right lateral posterior chest. 04:54 Musculoskeletal/extremity: DVT Exam: No signs of deep vein thrombosis. no pain, no swelling, no tenderness, negative Homans' sign noted on exam, no appreciated bluish discoloration, no erythema, no increased warmth. Vital Signs: 04:12 BP 117 / 68; Pulse 79; Resp 18; Temp 98.1(O); Pulse Ox 98% on R/A; Weight 68.04 kg; ao Height 5 ft. 7 in. (170.18 cm); Pain 10/10; 04:20 BP 104 / 75 Supine; Pulse 83; aa1 04:22 BP 103 / 69 Sitting; Pulse 87; aa1 04:24 BP 98 / 66 Standing; Pulse 88; aa1 05:33 BP 108 / 68; Pulse 80; Resp 18; Pulse Ox 98% on R/A; tl2 06:19 BP 102 / 64; Pulse 81; Resp 18; Pulse Ox 97% on R/A; tl2 04:12 Body Mass Index 23.49 (68.04 kg, 170.18 cm) ao MDM: 04:28 Patient medically screened. [facility] 04:57 Data reviewed: vital signs, nurses notes, lab test result(s), EKG, radiologic studies, [facility] CT scan, plain films. 02/25 05:04 Order name: Basic Metabolic Panel; Complete Time: 05:59 EDMS 02/25 05:04 Order name: BNP B-Type Natriuretic Peptide EDMS 02/25 05:04 Order name: CBC with Automated Diff; Complete Time: 05:59 EDMS 02/25 05:04 Order name: CKMB Creatine Kinase MB; Complete Time: 05:59 EDMS 02/25 05:04 Order name: Creatine Phosphokinase; Complete Time: 05:59 EDMS 02/25 05:04 Order name: Liver (Hepatic) Function; Complete Time: 05:59 EDMS 02/25 05:04 Order name: Chest Single View EDMS 02/25 05:04 Order name: Head C Spine Cap Wo Con EDMS 02/25 05:04 Order name: Magnesium; Complete Time: 05:59 EDMS 02/25 05:04 Order name: Protime (+INR); Complete Time: 05:36 EDMS 02/25 05:04 Order name: PTT, Activated Partial Thromb; Complete Time: 05:36 EDMS 02/25 05:04 Order name: Troponin (Emerg Dept Use Only); Complete Time: 05:59 EDMS 02/25 06:25 Order name: INCENTIVE SPIROMETRY dina 02/25 04:18 Order name: Cardiac monitoring; Complete Time: 04:25 aa1 02/25 04:18 Order name: EKG - Nurse/Tech; Complete Time: 04:25 aa1 02/25 04:18 Order name: IV Saline Lock; Complete Time: 04:25 aa1 02/25 04:18 Order name: Labs collected and sent; Complete Time: :25 aa 02/25 04:18 Order name: O2 Per Protocol; Complete Time: :25 aa1 02/25 04:18 Order name: O2 Sat Monitoring; Complete Time: 04:25 aa 02/25 04:18 Order name: Orthostatics; Complete Time: 04:25 aa1 Administered Medications: 04:28 Drug: NS 0.9% 1000 ml Route: IV; Rate: 1000 ml; Site: right forearm; aa1 06:40 Follow up: IV Status: Completed infusion; IV Intake: 1000ml ao 06:15 Drug: Potassium Chloride 20 mEq Route: PO; ao 06:40 Follow up: Response: No adverse reaction ao Disposition: 02/25/18 06:29 Discharged to Home. Impression: Fall due to bumping against object, Superficial injury of head, Contusion of right front wall of thorax, Contusion of thorax, Syncope and collapse - near, Type 2 diabetes mellitus, Diarrhea, unspecified, Multiple fractures of ribs, right side, Hypokalemia. - Condition is Stable. - Discharge Instructions: Food Choices to Help Relieve Diarrhea, Adult, Rib Contusion, Chest Wall Pain, Type 2 Diabetes Mellitus, Adult, Diarrhea, Potassium Content of Foods, Head Injury, Adult, Rib Fracture, Weakness, Chest Wall Pain, Ljas-tg-Jgae, Near-Syncope, Qmhl-mk-Aoxb, Syncope, Brio-rm-Quwx, Diabetes Mellitus and Food, Weakness, Exqs-no-Xvov, Type 2 Diabetes Mellitus, Adult, Qhuk-lq-Jtcs, Rib Fracture, Bunx-dl-Tpaj. - Prescriptions for Tylenol- Codeine #3 300-30 mg Oral Tablet - take 2 tablets by ORAL route every 6 hours As needed; 24 tablet. - Medication Reconciliation Form, Thank You Letter, Antibiotic Education, Prescription Opioid Use, Work release form form. - Follow up: Private Physician; When: 2 - 3 days; Reason: Recheck today's complaints, Continuance of care, Re-evaluation by your physician. - Problem is new. - Symptoms have improved. Signatures: Dispatcher [employer] Esperanza Landeros, RN RN aa1 Abiodun Wallace MD MD cha Ortiz, Alex, RN RN ao Corrections: (The following items were deleted from the chart) 07:05 04:18 BASIC METABOLIC PANEL+C.LAB.BRZ ordered. aa1 ao 07:05 04:18 BNP+C.LAB.BRZ ordered. aa ao 07:05 04:18 CBC+H.LAB.BRZ ordered. aa1 ao 07:05 04:18 CKMB+C.LAB.BRZ ordered. aa1 ao 07:05 04:18 CREATINE PHOSPHOKINASE+C.LAB.BRZ ordered. aa1 ao 07:05 04:18 HEPATIC FUNCTION+C.LAB.BRZ ordered. aa1 ao 07:05 04:18 MAGNESIUM+C.LAB.BRZ ordered. aa1 ao 07:05 04:18 PROTIME (+INR)+COAG.LAB.BRZ ordered. aa1 ao 07:05 04:18 PTT, ACTIVATED+COAG.LAB.BRZ ordered. aa1 ao 07:05 04:18 TROPONIN (EMERG DEPT USE ONLY)+C.LAB.BRZ ordered. aa1 ao 07:05 04:18 Chest Single View+RAD.RAD.BRZ ordered. aa1 ao 07:05 04:18 EKG.EKG+EKG.RAD.EKG ordered. aa1 ao 07:05 04:18 Head C Spine Cap Wo Con+CT.RAD.BRZ ordered. aa1 ao
--- NOTE | 2018-02-25 06:29 | ER ---
Nurse's Notes [facility] Name: Maximiliano Springer Age: 52 yrs Sex: Male : 1965 Arrival Date: 02/25/2018 Time: 04:03 Bed 8 Private MD: Diagnosis: Fall due to bumping against object;Superficial injury of head;Contusion of right front wall of thorax;Contusion of thorax;Syncope and collapse-near;Type 2 diabetes mellitus;Diarrhea, unspecified;Multiple fractures of ribs, right side;Hypokalemia Presentation: 02/25 04:10 Presenting complaint: Patient states: I was just discharge from the hospital Wednesday ao afternoon. I felt fine all day, tonight when I got up to use the rest room I got lightheaded and fell and hit my head on the floor. Pt c/o head pain and R sided rib pain. Pt denies dizziness at this time. Transition of care: patient was not received from another setting of care. Onset of symptoms was February 25, 2018 at 03:30. Care prior to arrival: None. 04:10 Method Of Arrival: Ambulatory ao 04:10 Acuity: SANDRA 3 ao Triage Assessment: 04:12 General: Appears in no apparent distress. uncomfortable, Behavior is calm, cooperative, ao appropriate for age. Pain: Complains of pain in head, R side rib area Pain does not radiate. Pain currently is 10 out of 10 on a pain scale. Quality of pain is described as aching. Neuro: Level of Consciousness is awake, alert, obeys commands, Oriented to person, place, time, situation, Speech is normal, Facial symmetry appears normal, Reports dizziness, dizziness has resolved. Cardiovascular: Denies chest pain. Respiratory: Airway is patent Respiratory effort is even, unlabored, Respiratory pattern is regular, symmetrical. GI: Reports diarrhea. : No signs and/or symptoms were reported regarding the genitourinary system. Derm: Skin is pink, warm \T\ dry. Historical: - Allergies: 04:12 NKDA; ao - Home Meds: 04:12 aspirin 81 mg Oral TbEC 1 tab once daily [Active]; atorvastatin 40 mg Oral tab 1 tab ao once daily [Active]; lisinopril 20 mg Oral tab 1 tab once daily [Active]; metformin 500 mg Oral tr24 2 tabs once daily [Active]; - PMHx: 04:12 CAD; Diabetes - NIDDM; Hypertension; ao - PSHx: 04:12 triple bypass; ao - Immunization history:: Adult Immunizations up to date. - Social history:: Smoking status: Patient/guardian denies using tobacco. - Family history:: not pertinent. Screenin:14 Abuse screen: Denies threats or abuse. Nutritional screening: No deficits noted. ao Tuberculosis screening: No symptoms or risk factors identified. Fall Risk Fall in past 12 months (25 points). Assessment: 04:14 General: see triage assessment. ao 05:33 Reassessment: Patient appears in no apparent distress at this time. Patient and/or tl2 family updated on plan of care and expected duration. Pain level reassessed. Patient is alert, oriented x 3, equal unlabored respirations, skin warm/dry/pink. 06:19 Reassessment: Patient appears in no apparent distress at this time. Patient and/or tl2 family updated on plan of care and expected duration. Pain level reassessed. Patient is alert, oriented x 3, equal unlabored respirations, skin warm/dry/pink. Awaiting further orders. 06:54 Reassessment: Discharge instructions given to patient. Patient agree with the POC and ao to follow up with PCP. Patient has no questions. RT has explained the proper use of a incentive inspirometer and patient understand the proper use of it. Vital Signs: 04:12 BP 117 / 68; Pulse 79; Resp 18; Temp 98.1(O); Pulse Ox 98% on R/A; Weight 68.04 kg; ao Height 5 ft. 7 in. (170.18 cm); Pain 10/10; 04:20 BP 104 / 75 Supine; Pulse 83; aa1 04:22 BP 103 / 69 Sitting; Pulse 87; aa1 04:24 BP 98 / 66 Standing; Pulse 88; aa1 05:33 BP 108 / 68; Pulse 80; Resp 18; Pulse Ox 98% on R/A; tl2 06:19 BP 102 / 64; Pulse 81; Resp 18; Pulse Ox 97% on R/A; tl2 04:12 Body Mass Index 23.49 (68.04 kg, 170.18 cm) ao ED Course: 04:03 Patient arrived in ED. do 04:11 Triage completed. ao 04:12 Arm band placed on right wrist. ao 04:14 Patient has correct armband on for positive identification. Bed in low position. Call ao light in reach. Side rails up X2. 04:21 Willian Zamora, RN is Primary Nurse. ao 04:25 Inserted saline lock: 22 gauge in right wrist, using aseptic technique. Blood collected.tl2 04:25 Initial lab(s) drawn, by me, sent to lab. EKG done, by engineering laboratory technician. tl2 04:28 Abiodun Wallace MD is Attending Physician. dina 04:35 X-ray completed. Portable x-ray completed in exam room. Patient tolerated procedure kw well. 05:04 Chest Single View In Process Unspecified. EDMS 05:04 Head C Spine Cap Wo Con In Process Unspecified. EDMS 06:39 No provider procedures requiring assistance completed. ao 06:43 INCENTIVE SPIROMETRY Sent. ao 06:56 IV discontinued, intact, bleeding controlled, No redness/swelling at site. Pressure ao dressing applied. Administered Medications: 04:28 Drug: NS 0.9% 1000 ml Route: IV; Rate: 1000 ml; Site: right forearm; aa1 06:40 Follow up: IV Status: Completed infusion; IV Intake: 1000ml ao 06:15 Drug: Potassium Chloride 20 mEq Route: PO; ao 06:40 Follow up: Response: No adverse reaction ao Intake: 06:40 IV: 1000ml; Total: 1000ml. ao Outcome: 06:29 Discharge ordered by . dina 06:39 Condition: stable ao 06:55 Discharged to home via wheelchair. ao 06:55 Discharge instructions given to patient, Instructed on discharge instructions, follow up and referral plans. Demonstrated understanding of instructions, follow-up care, medications. 07:05 Patient left the ED. ao Signatures: Dispatcher [employer] EDMS Esperanza Marshall RN RN aa1 Abiodun Wallace MD MD cha Whitley, Kimberlee kw Ortiz, Alex, RN RN Mary Aguiar Taylor RN RN tl2
[2018-02-25 07:11] VITALS: TEMP 98.1
[2018-02-25 07:16] VITALS: BP 102/64; O2SAT 97
--- NOTE | 2018-02-25 09:33 | RAD REPORT ---
EXAM DESCRIPTION: RAD - Chest Single View - 02/25/2018 4:37 am CLINICAL HISTORY: Fall, chest pain, rib pain COMPARISON: February 23 TECHNIQUE: AP portable chest image was obtained 0427 hours . FINDINGS: Scattered fibrotic lung changes are present similar to the comparison. No mass, infiltrate or pulmonary contusion. Sternotomy wires are in place. Heart and vasculature are normal. No measurab le pleural effusion and no pneumothorax. No gross rib deformity seen. Rib detail is limited. No acute aortic findings suspected. IMPRESSION: No acute cardiopulmonary process. No significant change from comparison.
--- NOTE | 2018-02-25 09:41 | RAD REPORT ---
EXAM DESCRIPTION: CT - Head C Spine Cap Wo Con - 02/25/2018 6:45 am CLINICAL HISTORY: Fall, head, neck, chest and abdomen pain A preliminary written report was provided at the time of the study, and the report was reviewed prio r to final dictation. COMPARISON: CT head February 23 TECHNIQUE: Axial [address] head images were obtained. Axial [address] cervical spine images were obtain ed with sagittal and coronal reconstruction images reviewed. Axial 5 mm images of the chest, abdomen and pelvis were obtained. All CT scans are performed using dose optimization technique as appropriate and may include automated exposure control or mA/KV adjustment according to patient size. FINDINGS: No intracranial hemorrhage, mass or edema. No midline shift or abnormal fluid collection. Mastoid air cells and paranasal sinuses are clear. No skull fracture. Ventricles are normal. Intracr anial findings are stable from prior imaging. Cervical bodies are normal in height and alignment. No fracture or acute bone finding.No disk space n arrowing.No prevertebral soft tissue thickening or paraspinal mass.Severe right-sided facet joint deg enerative change present at C3-4 and C4-5. There is significant foraminal stenosis at these levels. CT chest shows no pneumothorax, pulmonary contusion or pleural fluid collection. No mediastinal hem atoma and the aorta and pulmonary arteries are unremarkable. No chest will mass or abnormal axillary finding. Acute nondisplaced fractures posterior right eighth and ninth ribs noted. No pathologic comp onent. CT abdomen and pelvis show no injury to solid abdominal viscera. Gallbladder and biliary tree are unr emarkable. No bowel injury or significant finding. No free air, free fluid or abnormal stranding. No hernia, mass or bulky lymphadenopathy. No urinary bladder abnormality. No significant bony finding. IMPRESSION: No hemorrhage, edema or acute CT Head finding. No significant change from February 23. No fracture or acute cervical spine finding. There is significant C3-4 and C4-5 foraminal stenosis on the right from facet joint hypertrophy. Posterior right eighth and ninth rib fractures with no pulmonary contusion or pneumothorax. No significant CT Abdomen and Pelvis finding.
--- NOTE | 2018-02-27 22:46 | EKG ---
Test Date: 2018-02-25 Test Time: 04:22:46 [employer] Supervisor: QUINTON MEASUREMENT RESULTS: Intervals: Rate: 80 ME: 152 QRSD: 82 QT: 372 QTc: 429 [place]: P: 42 ME: 152 QRS: 17 T: 66 INTERPRETIVE STATEMENTS: Normal sinus rhythm Anterior T inversion, possible ischemia Normal ECG Compared to ECG 02/23/2018 20:30:55 T inverted now anterior leads Electronically Signed On 02-27-18 22:45:58 CDT by Nba Brand
== END 2018-02-25 07:05 | disposition home or self-care (01) ==
LOC: ER 03:58
DX: S00.90XA Unspecified superficial injury of unspecified part of head, initial encounter (principal); S22.41XA Multiple fractures of ribs, right side, initial encounter for closed fracture; S20.211A Contusion of right front wall of thorax, initial encounter; W18.00XA Striking against unspecified object with subsequent fall, initial encounter; Y93.89 Activity, other specified; Z79.82 Long term (current) use of aspirin; E87.6 Hypokalemia; R19.7 Diarrhea, unspecified; E11.9 Type 2 diabetes mellitus without complications; I10 Essential (primary) hypertension
CPT/HCPCS: 36415; 70450; 71045; 71250; 72125; 80048; 80076; 82550; 82553; 83735; 83880; 84484; 85025; 85610; 85730; 93005; 96360; 96361; 99284; J7030

== ENCOUNTER 2021-11-17 17:43 | Emergency (ER) | payer OTHER ==
--- OUTSIDE RECORDS SUMMARY | 2021-11-17 17:47 | XMS REPORT | Continuity of Care Document ---
:1965 Author Organization [facility] t Address [address] [place] [address] Care Team Providers Name Role Phone RUPAL Attending Clinician Unavailable MD RUPAL V. Attending Clinician Unavailable JEFF Attending Clinician Unavailable Jeff DAVILA Attending Clinician Doctor Unassigned, Name Attending Clinician Unavailable Osmani Davis DO Attending Clinician Pc, Echo Room 1 - Attending Clinician Unavailable A_Byrd Attending Clinician Unavailable Jay HECK Attending Clinician RUPAL Admitting Clinician Unavailable MD RUPAL V. Admitting Clinician Unavailable A_Byrd Admitting Clinician Unavailable Payers Payer Name Policy Type Policy Number Effective Date Expiration Date S ever ENTRUST [id number] 2020 00:00:00 [facility] [id number] 2010 (PPO) 00:00:00 Problems Condition Condition Condition Status Onset Resolution Last Treating Co mments Source Name Details Category Date Date Treatment Clinician Date Chest pain Chest pain Disease Active U nivers - ity of 00:00: [place] 00 Medical Branch Coronary Coronary Disease Active Unive rs artery artery 12-06 ity of disease disease 00:00: [place] involving involving 00 Medi [facility]j [facility] coronary coronary artery of artery of [facility] [place] [place] heart with heart with angina angina pectoris pectoris HTN HTN Disease Active Univers (hypertens (hypertens - it y of ion) ion) 00:00: [place] 00 Medical Branch Type 2 Type 2 Disease Active Univers diabetes diabetes 12-06 ity of mellitus mellitus 00:00: [place] without without 00 Medical complicati complicati Br anch on on Syncope Syncope Disease Active Univers 12-06 ity of 00:00: [place] 00 Medical Branch Palpitatio Palpitatio Disease Active U nivers n n 12-06 ity of 00:00: [place] 00 Medical Branch Coronary Coronary Disease Active Unive rs artery artery 12-06 ity of disease disease 00:00: [place] involving involving 00 [facility] [place] coronary coronary artery of artery of [facility] [place] [facility] [place] heart with heart with angina angina pectoris pectoris Allergies, Adverse Reactions, Alerts Allergy Allergy Status Severity Reaction(s) Onset Inactive Treating Comm ents Source Name Type Date Date Clinician NO KNOWN Drug Active Univers ALLERGIE Class ity of S [facility] Social History Social Habit Start Date Stop Date Quantity Comments Source Exposure to Not sure [facility] SARS-CoV-2 [facility] (event) [place] Alcohol intake 2021-02-10 2021-02-10 Current University 00:00:00 00:00:00 non-drinker of [facility] alcohol Branch (finding) Tobacco use and 2021-02-10 2021-02-10 Never used Universit y of exposure 00:00:00 00:00:00 [facility] Sex [birth year] Universit y of 00:00:00 00:00:00 [facility] Smoking Status Start Date Stop Date Source Never smoker [facility] Medications Ordered Filled Start Stop Current Ordering Indication Dosage Frequency Signature Comments Components Source Medication Medication Date Date Medication? Clinician (SIG) Name Name sulfur 2020- No 5mL Univers hexafluorid 12-12 ity of e microsphr 14:40: 14:45 [place] (LUMASON) 00 :00 Medical injection 5 Branch mL sulfur 2020- No 5mL 5 mL, Univers hexafluorid 12-12 Intravenou i ty of e microsphr 14:40: 14:45 s, ONCE, 1 [place] (LUMASON) 00 :00 dose, Maria Teresa Medic al injection 5 12/12/20 at Br anch mL 0845, Routine
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 [place] 81 mg EC 34 :00 Medical tablet Branch aspirin 2020- No 81mg Take 81 mg Uni vers (ASPIRIN 12-09 by mouth ity of LOW DOSE) 21:05: 00:00 daily. [place] 81 mg EC 34 :00 Medical tablet Branch TRAMADOL 2020- No Take by Univ ers HCL -12-09 mouth. ity of (TRAMADOL 20:40: 00:00 [place] ORAL) 50 :00 Medical Branch TRAMADOL 2020- No Take by Univ ers HCL -25 -25 mouth. ity of (TRAMADOL 20:40: 00:00 [place] ORAL) 50 :00 Medical Branch metoprolol Yes [id number] 25mg Take 1 Univers succinate 1-25 tablet by ity o f XL 25 mg 24 00:00: mouth [place] hr tablet 00 daily. Medical Branch apixaban 5 2020- Yes 1361 5mg Take 1 Unive rs mg tablet 1-25 tablet by ity o f 00:00: mouth 2 [place] 00 (two) Medical times Branch daily. Indication s: atrial flutter metoprolol 2020- Yes [id number] 25mg Take 1 Univers succinate 1-25 tablet by ity o f XL 25 mg 24 00:00: mouth [place] hr tablet 00 daily. Medical Branch apixaban 5 2020-0 Yes 1361 5mg Take 1 Unive rs mg tablet 1-25 tablet by ity o f 00:00: mouth 2 [place] 00 (two) Medical times Branch daily. Indication s: atrial flutter metoprolol 2020- Yes [id number] 25mg Take 1 Univers succinate 1-25 tablet by ity o f XL 25 mg 24 00:00: mouth [place] hr tablet 00 daily. Medical Branch apixaban 5 2020-0 Yes 1361 5mg Take 1 Unive rs mg tablet 1-25 tablet by ity o f 00:00: mouth 2 [place] 00 (two) Medical times Branch daily. Indication s: atrial flutter metoprolol 2020- Yes [id number] 25mg Take 1 Univers succinate 1-25 tablet by ity o f XL 25 mg 24 00:00: mouth [place] hr tablet 00 daily. Medical Branch apixaban 5 2020-0 Yes 1361 5mg Take 1 Unive rs mg tablet 1-25 tablet by ity o f 00:00: mouth 2 [place] 00 (two) Medical times Branch daily. Indication s: atrial flutter metoprolol 2020- Yes [id number] 25mg Take 1 Univers succinate 1-25 tablet by ity o f XL 25 mg 24 00:00: mouth [place] hr tablet 00 daily. Medical Branch apixaban 5 2020- Yes 1361 5mg Take 1 Unive rs mg tablet 1-25 tablet by ity o f 00:00: mouth 2 [place] 00 (two) Medical times Branch daily. Indication s: atrial flutter metoprolol 2020- Yes [id number] 25mg Take 1 Univers succinate 1-25 tablet by ity o f XL 25 mg 24 00:00: mouth [place] hr tablet 00 daily. Medical Branch apixaban 5 2020-0 Yes 1361 5mg Take 1 Unive rs mg tablet 1-25 tablet by ity o f 00:00: mouth 2 [place] 00 (two) Medical times Branch daily. Indication s: atrial flutter metoprolol 2020- Yes [id number] 25mg Take 1 Univers succinate 1-25 tablet by ity o f XL 25 mg 24 00:00: mouth [place] hr tablet 00 daily. Medical Branch apixaban 5 2020-0 Yes 1361 5mg Take 1 Unive rs mg tablet 1-25 tablet by ity o f 00:00: mouth 2 [place] 00 (two) Medical times Branch daily. Indication s: atrial flutter metoprolol 2020- Yes [id number] 25mg Take 1 Univers succinate 1-25 tablet by ity o f XL 25 mg 24 00:00: mouth [place] hr tablet 00 daily. Medical Branch apixaban 5 2020-0 Yes 1361 5mg Take 1 Unive rs mg tablet 1-25 tablet by ity o f 00:00: mouth 2 [place] 00 (two) Medical times Branch daily. Indication s: atrial flutter metoprolol 2020- Yes [id number] 25mg Take 1 Univers succinate 1-25 tablet by ity o f XL 25 mg 24 00:00: mouth [place] hr tablet 00 daily. Medical Branch apixaban 5 2020-0 Yes 1361 5mg Take 1 Unive rs mg tablet 1-25 tablet by ity o f 00:00: mouth 2 [place] 00 (two) Medical times Branch daily. Indication s: atrial flutter metoprolol 2020- Yes [id number] 25mg Take 1 Univers succinate 1-25 tablet by ity o f XL 25 mg 24 00:00: mouth [place] hr tablet 00 daily. Medical Branch apixaban 5 2020- Yes 1361 5mg Take 1 Unive rs mg tablet 1-25 tablet by ity o f 00:00: mouth 2 [place] 00 (two) Medical times Branch daily. Indication s: atrial flutter metoprolol 2020- Yes [id number] 25mg Take 1 Univers succinate 1-25 tablet by ity o f XL 25 mg 24 00:00: mouth [place] hr tablet 00 daily. Medical Branch apixaban 5 2020-0 Yes 1361 5mg Take 1 Unive rs mg tablet 1-25 tablet by ity o f 00:00: mouth 2 [place] 00 (two) Medical times Branch daily. Indication s: atrial flutter metoprolol 2020- Yes [id number] 25mg Take 1 Univers succinate 1-25 tablet by ity o f XL 25 mg 24 00:00: mouth [place] hr tablet 00 daily. Medical Branch apixaban 5 0 Yes 1361 5mg Take 1 Unive rs mg tablet 1-25 tablet by ity o f 00:00: mouth 2 [place] 00 (two) Medical times Branch daily. Indication s: atrial flutter cyclobenzap 2019-0 2020- No 5mg 5 mg, Univ ers rine 3-12 18-02 Oral, ity of (FLEXERIL) 01:00: 00:23 ONCE, 1 [facility] as tablet 5 mg 00 :00 dose, [place] Med ical 01/14/20 at Branch 1900, Routine ketorolac 2020-0 2020- No 30mg 30 mg, Unive rs (TORADOL) 3 03-02 Intramuscu ity of injection 01:00: 00:23 [place], ONCE, [place] 30 mg 00 :00 1 dose, Medical 01/14/20 Branch at 1900, [facility] : PAUL MEDINA cyclobenzap 2020-0 Yes [id number] 5mg Take 1 Univers rine 5 mg 3-01 tablet by ity o f tablet 00:00: mouth 3 (three) Medical times Branch daily as needed for Muscle Spasms. cyclobenzap 2020-0 Yes [id number] 5mg Take 1 Univers rine 5 mg 3-01 tablet by ity o f tablet 00:00: mouth 3 00 (three) Medical times Branch daily as needed for Muscle Spasms. cyclobenzap 2020-0 Yes [id number] 5mg Take 1 Univers rine 5 mg 3-01 tablet by ity o f tablet 00:00: mouth 3 (three) Medical times Branch daily as needed for Muscle Spasms. cyclobenzap 2020-0 Yes [id number] 5mg Take 1 Univers rine 5 mg 3-01 tablet by ity o f tablet 00:00: mouth 3 (three) Medical times Branch daily as needed for Muscle Spasms. cyclobenzap 2020-0 Yes [id number] 5mg Take 1 Univers rine 5 mg 3-01 tablet by ity o f tablet 00:00: mouth 3 00 (three) Medical times Branch daily as needed for Muscle Spasms. cyclobenzap 2020-0 Yes [id number] 5mg Take 1 Univers rine 5 mg 3-01 tablet by ity o f tablet 00:00: mouth 3 00 (three) Medical times Branch daily as needed for Muscle Spasms. cyclobenzap 2020-0 Yes [id number] 5mg Take 1 Univers rine 5 mg 3-01 tablet by ity o f tablet 00:00: mouth 3 00 (three) Medical times Branch daily as needed for Muscle Spasms. cyclobenzap 2020-0 Yes [id number] 5mg Take 1 Univers rine 5 mg 3-01 tablet by ity o f tablet 00:00: mouth 3 00 (three) Medical times Branch daily as needed for Muscle Spasms. cyclobenzap 2020-0 Yes [id number] 5mg Take 1 Univers rine 5 mg 3-01 tablet by ity o f tablet 00:00: mouth 3 00 (three) Medical times Branch daily as needed for Muscle Spasms. cyclobenzap 2020-0 Yes [id number] 5mg Take 1 Univers rine 5 mg 3-01 tablet by ity o f tablet 00:00: mouth 3 00 (three) Medical times Branch daily as needed for Muscle Spasms. cyclobenzap 2020-0 Yes [id number] 5mg Take 1 Univers rine 5 mg 3-01 tablet by ity o f tablet 00:00: mouth 3 00 (three) Medical times Branch daily as needed for Muscle Spasms. cyclobenzap 2020-0 Yes [id number] 5mg Take 1 Univers rine 5 mg 3-01 tablet by ity o f tablet 00:00: mouth 3 (three) Medical times Branch daily as needed for Muscle Spasms. cyclobenzap 2020-0 Yes [id number] 5mg Take 1 Univers rine 5 mg 3-01 tablet by ity o f tablet 00:00: mouth 3 (three) Medical times Branch daily as needed for Muscle Spasms. cyclobenzap 2020-0 Yes [id number] 5mg Take 1 Univers rine 5 mg 3-01 tablet by ity o f tablet 00:00: mouth 3 (three) Medical times Branch daily as needed for Muscle Spasms. cyclobenzap 2020-0 Yes [id number] 5mg Take 1 Univers rine 5 mg 3-01 tablet by ity o f tablet 00:00: mouth 3 (three) Medical times Branch daily as needed for Muscle Spasms. metFORMIN 2018-0 Yes [id number] 1000mg Take 1 Univers 1,000 mg 2-28 tablet by ity of tablet 00:00: mouth 2 (two) Medical times Branch daily with meals. metFORMIN 2018-0 Yes [id number] 1000mg Take 1 Univers 1,000 mg 2-28 tablet by ity of tablet 00:00: mouth 2 (two) Medical times Branch daily with meals. metFORMIN 2018-0 Yes [id number] 1000mg Take 1 Univers 1,000 mg 2-28 tablet by ity of tablet 00:00: mouth 2 (two) Medical times Branch daily with meals. metFORMIN 2018-0 Yes [id number] 1000mg Take 1 Univers 1,000 mg 2-28 tablet by ity of tablet 00:00: mouth (two) Medical times Branch daily with meals. metFORMIN 2018-0 Yes [id number] 1000mg Take 1 Univers 1,000 mg 2-28 tablet by ity of tablet 00:00: mouth (two) Medical times Branch daily with meals. metFORMIN 2018-0 Yes [id number] 1000mg Take 1 Univers 1,000 mg 2-28 tablet by ity of tablet 00:00: mouth (two) Medical times Branch daily with meals. metFORMIN 2018-0 Yes [id number] 1000mg Take 1 Univers 1,000 mg 2-28 tablet by ity of tablet 00:00: mouth (two) Medical times Branch daily with meals. metFORMIN 2018-0 Yes [id number] 1000mg Take 1 Univers 1,000 mg 2-28 tablet by ity of tablet 00:00: mouth (two) Medical times Branch daily with meals. metFORMIN 2018-0 Yes [id number] 1000mg Take 1 Univers 1,000 mg 2-28 tablet by ity of tablet 00:00: mouth (two) Medical times Branch daily with meals. metFORMIN 2018-0 Yes [id number] 1000mg Take 1 Univers 1,000 mg 2-28 tablet by ity of tablet 00:00: mouth (two) Medical times Branch daily with meals. metFORMIN 2018-0 Yes [id number] 1000mg Take 1 Univers 1,000 mg 2-28 tablet by ity of tablet 00:00: mouth (two) Medical times Branch daily with meals. metFORMIN 2018-0 Yes [id number] 1000mg Take 1 Univers 1,000 mg 2-28 tablet by ity of tablet 00:00: mouth (two) Medical times Branch daily with meals. metFORMIN 2018-0 Yes [id number] 1000mg Take 1 Univers 1,000 mg 2-28 tablet by ity of tablet 00:00: mouth (two) Medical times Branch daily with meals. metFORMIN 2018-0 Yes [id number] 1000mg Take 1 Univers 1,000 mg 2-28 tablet by ity of tablet 00:00: mouth (two) Medical times Branch daily with meals. metFORMIN 2018-0 Yes [id number] 1000mg Take 1 Univers 1,000 mg 2-28 tablet by ity of tablet 00:00: mouth 2 00 (two) Medical times Branch daily with meals. TRAMADOL 2017-0 Yes Take by Unive rs HCL 2-09 mouth. ity of (TRAMADOL 06:40: [place] ORAL) 00 Medical Branch aspirin 2018-0 Yes 81mg Take 81 mg Univ ers (ASPIRIN 2-09 by mouth ity of LOW DOSE) 06:40: daily. [place] 81 mg EC 00 Medical tablet Branch TRAMADOL 2017-0 Yes Take by Unive rs HCL 2-09 mouth. ity of (TRAMADOL 06:40: [place] ORAL) 00 Medical Branch aspirin 2017-0 Yes 81mg Take 81 mg Univ ers (ASPIRIN 2-09 by mouth ity of LOW DOSE) 06:40: daily. [place] 81 mg EC 00 Medical tablet Branch TRAMADOL 2017-0 Yes Take by Unive rs HCL 2-09 mouth. ity of (TRAMADOL 06:40: [place] ORAL) 00 Medical Branch aspirin 2017-0 Yes 81mg Take 81 mg Univ ers (ASPIRIN 2-09 by mouth ity of LOW DOSE) 06:40: daily. [place] 81 mg EC 00 Medical tablet Branch nitroglycer 2017-[address] 1 Uni vers in 0.4 mg 2-09 tablet ity of sublingual 00:00: under the [place] tablet 00 tongue Medical every 5 Branch (five) minutes as needed for Chest pain for up to 10 doses. nitroglycer 2018-[address] 1 Uni vers in 0.4 mg 2-09 tablet ity of sublingual 00:00: under the [place] tablet 00 tongue Medical every 5 Branch (five) minutes as needed for Chest pain for up to 10 doses. nitroglycer 2018-[address] 1 Uni vers in 0.4 mg 2-09 tablet ity of sublingual 00:00: under the [place] tablet 00 tongue Medical every 5 Branch (five) minutes as needed for Chest pain for up to 10 doses. nitroglycer 2018-[address] 1 Uni vers in 0.4 mg 2-09 tablet ity of sublingual 00:00: under the [place] tablet 00 tongue Medical every 5 Branch (five) minutes as needed for Chest pain for up to 10 doses. nitroglycer 2018-[address] 1 Uni vers in 0.4 mg 2-09 tablet ity of sublingual 00:00: under the [place] tablet 00 tongue Medical every 5 Branch (five) minutes as needed for Chest pain for up to 10 doses. nitroglycer 2018-[address] 1 Uni vers in 0.4 mg 2-09 tablet ity of sublingual 00:00: under the [place] tablet 00 tongue Medical every 5 Branch (five) minutes as needed for Chest pain for up to 10 doses. nitroglycer 2018-[address] 1 Uni vers in 0.4 mg 2-09 tablet ity of sublingual 00:00: under the [place] tablet 00 tongue Medical every 5 Branch (five) minutes as needed for Chest pain for up to 10 doses. nitroglycer 2018-[address] 1 Uni vers in 0.4 mg 2-09 tablet ity of sublingual 00:00: under the [place] tablet 00 tongue Medical every 5 Branch (five) minutes as needed for Chest pain for up to 10 doses. nitroglycer 2018-[address] 1 Uni vers in 0.4 mg 2-09 tablet ity of sublingual 00:00: under the [place] tablet 00 tongue Medical every 5 Branch (five) minutes as needed for Chest pain for up to 10 doses. nitroglycer 2018-[address] 1 Uni vers in 0.4 mg 2-09 tablet ity of sublingual 00:00: under the [place] tablet 00 tongue Medical every 5 Branch (five) minutes as needed for Chest pain for up to 10 doses. nitroglycer 2018-[address] 1 Uni vers in 0.4 mg 2-09 tablet ity of sublingual 00:00: under the [place] tablet 00 tongue Medical every 5 Branch (five) minutes as needed for Chest pain for up to 10 doses. nitroglycer 2018-[address] 1 Uni vers in 0.4 mg 2-09 tablet ity of sublingual 00:00: under the [place] tablet 00 tongue Medical every 5 Branch (five) minutes as needed for Chest pain for up to 10 doses. nitroglycer 2018-[address] 1 Uni vers in 0.4 mg 2-09 tablet ity of sublingual 00:00: under the [place] tablet 00 tongue Medical every 5 Branch (five) minutes as needed for Chest pain for up to 10 doses. nitroglycer 2018-[address] 1 Uni vers in 0.4 mg 2-09 tablet ity of sublingual 00:00: under the [place] tablet 00 tongue Medical every 5 Branch (five) minutes as needed for Chest pain for up to 10 doses. nitroglycer 2018-[address] 1 Uni vers in 0.4 mg 2-09 tablet ity of sublingual 00:00: under the [place] tablet 00 tongue Medical every 5 Branch (five) minutes as needed for Chest pain for up to 10 doses. metoprolol 2018-0 Yes 25mg Take 1 Unive rs succinate 1-24 tablet by ity o f XL 25 mg 24 00:00: mouth [place] hr tablet 00 daily. Medical Branch lisinopril 2018-0 Yes 5mg Take 1 Unive rs 5 mg tablet 1-24 tablet by ity of 00:00: mouth [place] 00 daily. Medical Branch metoprolol 2018-0 Yes 25mg Take 1 Unive rs succinate 1-24 tablet by ity o f XL 25 mg 24 00:00: mouth [place] hr tablet 00 daily. Medical Branch lisinopril 2018-0 Yes 5mg Take 1 Unive rs 5 mg tablet 1-24 tablet by ity of 00:00: mouth [place] 00 daily. Medical Branch metoprolol 2018-0 Yes 25mg Take 1 Unive rs succinate 1-24 tablet by ity o f XL 25 mg 24 00:00: mouth [place] hr tablet 00 daily. Medical Branch lisinopril 2018-0 Yes 5mg Take 1 Unive rs 5 mg tablet 1-24 tablet by ity of 00:00: mouth [place] 00 daily. Medical Branch metoprolol 2018-0 202- No 25mg Take 1 Univ ers succinate 1-24 -25 tablet by ity of XL 25 mg 24 00:00: 00:00 [place] hr tablet 00 :00 daily. Medical Branch lisinopril 2018-0 2021- No 5mg Take 1 Univ ers 5 mg tablet 1-24 -25 tablet by it y of 00:00: 00:00 mouth [place] 00 :00 daily. Medical Branch metoprolol 2018-0 2020- No 25mg Take 1 Univ ers succinate 1-24 -25 tablet by ity of XL 25 mg 24 00:00: 00:00 [place] hr tablet 00 :00 daily. Medical Branch lisinopril 2018-0 2021- No 5mg Take 1 Univ ers 5 mg tablet 12-08- tablet by it y of 00:00: 00:00 mouth [place] 00 :00 daily. Medical Branch atorvastati 2018-0 Yes 40mg Take 1 Univ ers n 40 mg 1-23 tablet by ity of tablet 00:00: mouth [place] 00 every Medical evening. Branch atorvastati 2018-0 Yes 40mg Take 1 Univ ers n 40 mg 1-23 tablet by ity of tablet 00:00: mouth [place] 00 every Medical evening. Branch atorvastati 2018-0 Yes 40mg Take 1 Univ ers n 40 mg 1-23 tablet by ity of tablet 00:00: mouth [place] 00 every Medical evening. Branch atorvastati 2018-0 Yes 40mg Take 1 Univ ers n 40 mg 1-23 tablet by ity of tablet 00:00: mouth [place] 00 every Medical evening. Branch atorvastati 2018-0 Yes 40mg Take 1 Univ ers n 40 mg 1-23 tablet by ity of tablet 00:00: mouth [place] 00 every Medical evening. Branch atorvastati 2018-0 Yes 40mg Take 1 Univ ers n 40 mg 1-23 tablet by ity of tablet 00:00: mouth [place] 00 every Medical evening. Branch atorvastati 2018-0 Yes 40mg Take 1 Univ ers n 40 mg 1-23 tablet by ity of tablet 00:00: mouth [place] 00 every Medical evening. Branch atorvastati 2018-0 Yes 40mg Take 1 Univ ers n 40 mg 1-23 tablet by ity of tablet 00:00: mouth [place] 00 every Medical evening. Branch atorvastati 2018-0 Yes 40mg Take 1 Univ ers n 40 mg 1-23 tablet by ity of tablet 00:00: mouth [place] 00 every Medical evening. Branch atorvastati 2018-0 Yes 40mg Take 1 Univ ers n 40 mg 1-23 tablet by ity of tablet 00:00: mouth [place] 00 every Medical evening. Branch atorvastati 2018-0 Yes 40mg Take 1 Univ ers n 40 mg 1-23 tablet by ity of tablet 00:00: mouth [place] 00 every Medical evening. Branch atorvastati 2018-0 Yes 40mg Take 1 Univ ers n 40 mg 1-23 tablet by ity of tablet 00:00: mouth [place] 00 every Medical evening. Branch atorvastati 2017-0 Yes 40mg Take 1 Univ ers n 40 mg 1-23 tablet by ity of tablet 00:00: mouth [place] 00 every Medical evening. Branch atorvastati 2017-0 Yes 40mg Take 1 Univ ers n 40 mg 1-23 tablet by ity of tablet 00:00: mouth [place] 00 every Medical evening. Branch atorvastati 2017-0 Yes 40mg Take 1 Univ ers n 40 mg 1-23 tablet by ity of tablet 00:00: mouth [place] 00 every Medical evening. Branch Vital Signs Vital Name Observation Time Observation Value Comments Source Systolic blood 2021-02-10 15:45:00 134 mm[Hg] Univer [facility] of [facility] Diastolic blood 2021-02-10 15:45:00 76 mm[Hg] Unive rsity of [facility] Heart rate 2021-02-10 15:45:00 74 /min Universi ty [facility] Body height 2021-02-10 15:45:00 170.2 cm Universi ty [facility] Body weight 2021-02-10 15:45:00 63.368 kg Universi ty [facility] BMI 2021-02-10 15:45:00 21.88 kg/m2 Universi ty [facility] Oxygen saturation in 2021-02-10 15:45:00 98 /min [facility] Arterial blood by [facility] Pulse oximetry Branch Systolic blood 2020-12-12 14:12:00 123 mm[Hg] Univer sity of [facility] Diastolic blood 2020-12-12 14:12:00 68 mm[Hg] Unive rsity of [facility] Heart rate 2020-12-12 14:12:00 69 /min Universi ty [facility] Body height 2020-12-12 14:12:00 170.2 cm Universi ty [facility] Body weight 2020-12-12 14:12:00 61.236 kg Universi ty [facility] BMI 2020-12-12 14:12:00 21.14 kg/m2 Universi ty [facility] Systolic blood 2020-12-09 20:38:00 124 mm[Hg] Univer sity of [facility] Diastolic blood 2020-12-09 20:38:00 78 mm[Hg] Unive rsity of pressure [place] [facility] Heart rate 2020-12-09 20:38:00 78 /min Universi ty of [place] [facility] Respiratory rate 2020-12-09 20:38:00 21 /min Univ ersity of [place] [facility] Body height 2020-12-09 20:38:00 170.2 cm Universi ty of [place] [facility] Body weight 2020-12-09 20:38:00 61.598 kg Universi ty of [place] [facility] BMI 2020-12-09 20:38:00 21.27 kg/m2 Universi ty of [place] [facility] Oxygen saturation in 2020-12-09 20:38:00 97 /min University of Arterial blood by [facility] Pulse oximetry Branch Systolic blood 2020-01-14 23:41:00 144 mm[Hg] Univer sity of pressure [place] [facility] Diastolic blood 2020-01-14 23:41:00 79 mm[Hg] Unive rsity of pressure [place] [facility] Heart rate 2020-01-14 23:41:00 88 /min Universi ty of [place] [facility] Body temperature 2020-01-14 23:41:00 36.83 Yesenia Univ ersity of [place] [facility] Respiratory rate 2020-01-14 23:41:00 18 /min Univ ersity of [place] [facility] Body height 2020-01-14 23:41:00 170.2 cm Universi ty of [place] [facility] Body weight 2020-01-14 23:41:00 62.143 kg Universi ty [facility] [place] [facility] BMI 2020-01-14 23:41:00 21.46 kg/m2 Univers[facility] [place] [facility] Oxygen saturation in 2020-01-14 23:41:00 100 /min University of Arterial blood by [facility] Pulse oximetry Branch Procedures Procedure Date / Time Performing Clinician Source Performed INSURANCE CORRESPONDENCE 2021-02-04 05:01:00 Doctor Unassigned, [facility] CONSENT/REFUSAL FOR 2020-12-09 20:30:44 Doctor Unassigned, Unive [place] [facility] DIAGNOSIS AND TREATMENT [facility] [facility] REFERRAL- 2020-11-05 06:01:00 Doctor Mykeligned, [facility] REQUEST/RESPONSE [facility] CONSENT/REFUSAL FOR 2020-01-14 23:30:42 Doctor Unassigned, [facility] DIAGNOSIS AND TREATMENT [facility] NOTICE OF PRIVACY 2020-01-14 23:30:18 Doctor Unassigned, [facility] PRACTICES [facility] Encounters Start End Encounter Admission Attending Care Care Encounter Source Date/Time Date/Time Type Type Clinicians Facility Department ID 2021-09-11 Emergency [facility] [id number] [facility] 11:51:51 [facility] 2021-08-11 2021-08-11 Outpatient VALDERRABAN [facility] [id number] [place] 00:00:00 00:00:00 O, THONY [address] 2021-06-09 2021-06-09 Outpatient VALDERRABAN [facility] [id number] [place] 00:00:00 00:00:00 O, THONY [address] 2021-04-18 2021-04-18 Outpatient VALDERRABAN [facility] [id number] [place] 00:00:00 00:00:00 O, THONY [address] 2021-04-16 2021-04-16 Outpatient VALDERRABAN [facility] [id number] [place] 00:00:00 00:00:00 O, THONY [address] 2021-04-16 2021-04-16 Outpatient VALDERRABAN [facility] [id number] [place] 00:00:00 00:00:00 O, THONY [address] 2021-04-11 2021-04-11 Outpatient VALDERRABAN [facility] [id number] [place] 00:00:00 00:00:00 O, THONY [address] 2021-03-14 2021-03-14 Outpatient JEFF, [facility] [id number] [facility] 09:00:00 09:00:00 EMILIE [id number] titay o f [facility] 2021-03-14 2021-03-14 Outpatient R JEFF, [facility] [id number] [facility] 09:00:00 09:00:00 EMILIE riversy o f [facility] 2021-02-17 2021-02-17 Outpatient R JEFF, [facility] [id number] [facility] 00:00:00 00:00:00 EMILIE [id number] ity o f [facility] 2021-02-17 2021-02-17 Outpatient R [facility], [facility] [id number] Univers 00:00:00 00:00:00 EMILIE riversy o [facility] 2021-02-14 2021-02-14 Outpatient R [facility] [id number] [facility] 08:30:00 08:30:00 [id number] ity of [facility] 2021-02-11 2021-02-11 [facility] [id number] [facility] 00:00:00 00:00:00 Emilie Coronel [id number] [phone] Fl dical [place]al [address] [place] [address] 2021-02-10 2021-02-10 Office [facility] [id number] Univers 10:33:05 11:50:02 Visit Emilie Coronel [id number] [place] [phone] Fl dical nal [address] [place] [address] 2021-02-10 2021-02-10 Outpatient R [facility] [id number] Univers 10:40:00 10:40:00 EMILIE [id number] ity o [facility] 2021-02-10 2021-02-10 Outpatient R [facility] [id number] Univers 10:40:00 10:40:00 EMILIE riversy o [facility] 2021-02-04 2021-02-04 Orders Doctor CRISTOPHER [id number] Univers 00:00:00 00:00:00 Only Unassigned, FEMI [id number] ity of [facility] 4.2.7.2.686 [place] [phone] [address] 2021-01-25 2021-01-25 [facility] [id number] [facility] 00:00:00 00:00:00 Outreach Christopher URIBE [id number] [facility] [place] [phone] Fl dic[address] 2021-01-20 2021-01-20 [facility] [id number] Univers 00:00:00 00:00:00 Emilie Coronel [id number] [place] [phone] Fl dical nal [address] [facility] 2021-01-01 2021-01-01 Outpatient R JEFF, [facility] [id number] [facility] 14:40:00 14:40:00 EMILIE [id number] ity o f [facility] 2021-01-01 2021-01-01 Outpatient R JEFF, [facility] [id number] Univers 14:40:00 14:40:00 EMILIE ity o [facility] 2020-12-12 2020-12-12 Laboratory Pc, Adc Echo Room 1 - [facility] 1 .2.840.114 [id number] Univers 07:57:11 08:53:25 Only Jeff, Emilie Coronel [id number] [place] [phone] Fl dicnj nal [address] [place] [address] 2020-12-12 2020-12-12 Outpatient R [facility] [id number] Univers 08:00:00 08:00:00 [id number] ity of [facility] 2020-12-12 2020-12-12 Outpatient R [facility] [id number] Univers 08:00:00 08:00:00 ity of [facility] 2020-12-09 2020-12-09 [facility] 1.2.840.114 [id number] Univers 14:31:10 15:11:30 Visit Emilie Coronel [id number] [place] [phone] Fl dical nal [address] [facility] 2020-12-09 2020-12-09 [facility] [id number] Univers 14:40:00 14:40:00 GARCIACHARLESJUN [id number] ity o f [facility] 2020-12-09 2020-12-09 Outpatient Fish AGUILAR [facility] [id number] Univers 14:40:00 14:40:00 DANIJUN ity o f [facility] 2020-12-09 2020-12-09 Orders Doctor CRISTOPHER 1.2.840.114 [id number] Univers 00:00:00 00:00:00 Only Unassigned, FEMI [id number] [facility] 4.2.7.2.686 [place] [phone] [address] 2020-11-05 2020-11-05 Orders Doctor CRISTOPHER 1.2.840.114 [id number] Univers 00:00:00 00:00:00 Only Unassigned, FEMI [id number] [facility] 4.2.7.2.686 [place] [phone] [address] 2020-08-23 2020-08-23 Outpatient A_Byrd [facility] [id number] [place] 11:06:00 11:06:00 [facility] 2020-01-14 2020-01-14 Emergency [facility] [id number] [facility] 17:42:45 19:48:00 Paul Coronel [id number] i ty [facility] 4.2.7.2.686 [place] [facility] [phone] [place] [id number] [place] Results Test Description Test Time Test Comments Results Result Comments Source SARS-CoV-2 (COVID-19) RNA [Presence] in Respiratory sp ecimen by 2021-04-16 19:30:16 SAVANNAH with probe detection Test Item Value Reference Range Interpretation Comme nts SARS-CoV-2 (COVID-19) RNA [Presence] in Respiratory Not detected No t-Detected specimen by SAVANNAH with probe detection (test code = 65769-4) Whether patient is employed in a healthcare setting (test code = 62737-5) Whether the patient has symptoms related to condition of interest (test code = 39894-6) Patient was hospitalized because of this condition (test code = 98508-8) Whether the patient was admitted to intensive care unit (ICU) for condition of interest (test code = 80635-9) Whether patient resides in a congregate care setting (test code = 26351-1)
[2021-11-17 19:29] LABS: Absolute Lymphocytes (CBC) 0.8 K/uL (0.7-4.9); Hematocrit 43.3 % (39.6-49.0); Lymphocytes % 17.3 % (15.3-44.8); MPV 8.3 fL (7.6-11.3); RBC Red Blood Cell Count 4.58 M/uL (4.33-5.43)
--- NOTE | 2021-11-17 19:58 | RAD REPORT ---
EXAM DESCRIPTION: US - Abdomen Exam Limited - 11/17/2021 7:47 pm CLINICAL HISTORY: r/o GB;Abd pain Abdominal pain COMPARISON: No comparisons FINDINGS: The gallbladder demonstrates no gallstones. No pericholecystic fluid or gallbladder wall t hickening. The common bile duct is normal measuring 4-5 mm.. The liver demonstrates no findings of intrahepatic biliary dilatation. IMPRESSION: Unremarkable examination.
--- NOTE | 2021-11-17 20:19 | RAD REPORT ---
EXAM DESCRIPTION: RAD - Chest Single View - 11/17/2021 8:13 pm CLINICAL HISTORY: COUGH Chest pain. COMPARISON: Chest Pa And Lat (2 Views) dated 07/09/2021; Chest Single View dated 02/25/2018; Chest Sin gle View dated 02/23/2018; Chest Single View dated 02/29/2016 FINDINGS: Portable technique limits examination quality. Interstitial lung markings are mildly prominent bilaterally. Small focal opacity is seen in the right lung base probably representing a small infiltrate/ pneumonia. The heart is normal in size. Sternoto my wires noted.
--- NOTE | 2021-11-17 21:08 | EDPHYS ---
Physician Documentation [facility] Name: Maximiliano Springer Age: 56 yrs Sex: Male : 1965 Arrival Date: 11/17/2021 Time: 17:51 Bed Waiting Private MD: ED Physician Moise Kilpatrick HPI: 11/17 20:29 This 56 yrs old Male presents to ER via Ambulatory with complaints of Epigastric Pain, jr8 Abdominal Pain. 20:29 Modifying factors: The symptoms are alleviated by nothing, the symptoms are aggravated jr8 by coughing. Severity of pain: At its worst the pain was moderate in the emergency department the pain is unchanged. The patient has not experienced similar symptoms in the past. The patient has not recently seen a physician. Is a 56-year-old male patient that presented to the emergency room with complaints of cough and no epigastric pain. Patient stated that he has had cough for the past couple days and since then has had upper abdominal and epigastric pain. Denies any nausea, vomiting, diarrhea.. Historical: - Allergies: 18:59 NKDA; iw - Home Meds: 18:59 metformin 500 mg Oral tr24 2 tabs once daily [Active]; atorvastatin 40 mg Oral tab 1 iw tab once daily [Active]; Eliquis oral [Active]; zpack [Active]; Prednisone Oral [Active]; - PMHx: 18:59 Diabetes - NIDDM; CAD; Hypertension; iw - PSHx: 18:59 triple bypass; iw - Immunization history:: Client reports having NOT received the Covid vaccine. - Social history:: Smoking status: Patient denies any tobacco usage or history of. ROS: 20:29 Eyes: Negative for injury, pain, redness, and discharge, ENT: Negative for injury, jr8 pain, and discharge, Neck: Negative for injury, pain, and swelling, Cardiovascular: Negative for chest pain, palpitations, and edema, Back: Negative for injury and pain, MS/Extremity: Negative for injury and deformity, Skin: Negative for injury, rash, and discoloration, Neuro: Negative for headache, weakness, numbness, tingling, and seizure. 20:29 Respiratory: Positive for cough, Negative for dyspnea on exertion, shortness of breath, sputum production, wheezing. 20:29 Abdomen/GI: Positive for abdominal pain, Negative for nausea, vomiting, and diarrhea. Exam: 20:29 Constitutional: This is a well developed, well nourished patient who is awake, alert, jr8 and in no acute distress. ENT: Nares patent. No nasal discharge, no septal abnormalities noted. Tympanic membranes are normal and external auditory canals are clear. Oropharynx with no redness, swelling, or masses, exudates, or evidence of obstruction, uvula midline. Mucous membranes moist. Neck: Trachea midline, no thyromegaly or masses palpated, and no cervical lymphadenopathy. Supple, full range of motion without nuchal rigidity, or vertebral point tenderness. No Meningismus. Cardiovascular: Regular rate and rhythm with a normal S1 and S2. No gallops, murmurs, or rubs. Normal PMI, no JVD. No pulse deficits. Respiratory: Lungs have equal breath sounds bilaterally, clear to auscultation and percussion. No rales, rhonchi or wheezes noted. No increased work of breathing, no retractions or nasal flaring. Back: No spinal tenderness. No costovertebral tenderness. Full range of motion. Skin: Warm, dry with normal turgor. Normal color with no rashes, no lesions, and no evidence of cellulitis. MS/ Extremity: Pulses equal, no cyanosis. Neurovascular intact. Full, normal range of motion. Neuro: Awake and alert, GCS 15, oriented to person, place, time, and situation. Cranial nerves II-XII grossly intact. Motor strength 5/5 in all extremities. Sensory grossly intact. Cerebellar exam normal. Normal gait. 20:29 Abdomen/GI: Inspection: abdomen appears normal, Bowel sounds: active, all quadrants, Palpation: soft, in all quadrants, mild abdominal tenderness, in the epigastric area and right upper quadrant, mass, is not appreciated, rebound tenderness, is not appreciated, voluntary guarding, is not appreciated, involuntary guarding, is not appreciated, no appreciated organomegaly, Indicators: McBurney's point is not tender, Varner's sign is negative, Rovsing's sign is negative, Liver: tenderness, is not appreciated. Vital Signs: 18:57 BP 102 / 77; Pulse 97; Resp 16; Temp 99.1; Pulse Ox 100% on R/A; iw 21:14 BP 126 / 77; Pulse 108; Resp 18 S; Temp 98.0(TE); Pulse Ox 99% on R/A; as6 MDM: 19:06 Patient medically screened. jr8 21:05 Data reviewed: vital signs, nurses notes, lab test result(s), radiologic studies, plain jr8 films, and as a result, I will discharge patient. Data interpreted: Pulse oximetry: on room air is 100 %. Interpretation: normal. Counseling: I had a detailed discussion with the patient and/or guardian regarding: the historical points, exam findings, and any diagnostic results supporting the discharge/admit diagnosis, lab results, radiology results, the need for outpatient follow up, a family practitioner, to return to the emergency department if symptoms worsen or persist or if there are any questions or concerns that arise at home. 11/17 19:03 Order name: SARS-COV-2 RT PCR (Document "Date of Onset" if Symptomatic); Complete Time: iw 20:55 11/17 19:03 Order name: Basic Metabolic Panel; Complete Time: 22:57 iw 11/17 19:03 Order name: CBC with Diff; Complete Time: 19:36 iw 11/17 19:03 Order name: Hepatic Function; Complete Time: 22:57 iw 11/17 19:03 Order name: Lipase; Complete Time: 22:57 iw 11/17 19:03 Order name: XRAY Chest (1 view); Complete Time: 20:31 iw 11/17 19:03 Order name: IV Saline Lock; Complete Time: 19:16 iw 11/17 19:03 Order name: Labs collected and sent; Complete Time: 19:16 iw 11/17 19:05 Order name: US Abdomen Limited; Complete Time: 20:03 iw Administered Medications: No medications were administered Disposition: 22:38 Co-signature as Attending Physician, Moise Kilpatrick MD. pkl Disposition Summary: 11/17/21 21:07 Discharge Ordered Location: Home jr8 Problem: new jr8 Symptoms: have improved jr8 Condition: Stable jr8 Diagnosis - SARS-associated coronavirus as the cause of diseases classified elsewhere jr8 Followup: jr8 - With: Private Physician - When: 2 - 3 days - Reason: Recheck today's complaints, Continuance of care, Re-evaluation by your physician Discharge Instructions: - Discharge Summary Sheet jr8 - COVID-19 jr8 - 10 Things You Can Do to Manage Your COVID-19 Symptoms at Home - [facility] jr8 - COVID-19: Quarantine vs. Isolation - [facility] jr8 Forms: - Medication Reconciliation Form jr8 - Thank You Letter jr8 - Antibiotic Education jr8 - Prescription Opioid Use jr8 - Work release form as6 Prescriptions: - promethazine-DM 6.25-15 mg/5 mL Oral syrup - take 5 milliliter by ORAL route every 4-6 hours as needed, not to exceed 30 mL jr8 in 24 hours; 110 milliliter; Refills: 0, Product Selection Permitted Signatures: Dispatcher [employer] Moise Shepherd MD MD pkDanielle Walter, LAYTON RN Ace Maharaj PA PA jr8 Rusty Hansen RN RN as6
--- NOTE | 2021-11-17 21:08 | ER ---
Nurse's Notes [facility] Name: Maximiliano Springer Age: 56 yrs Sex: Male : 1965 Arrival Date: 11/17/2021 Time: 17:51 Bed Waiting Private MD: Diagnosis: SARS-associated coronavirus as the cause of diseases classified elsewhere Presentation: 11/17 18:57 Chief complaint: Patient states: has had cough for past week , is having lower abd pain iw that is worse when he coughs , had chills last week , was seen by his PCP and told him it was the flu. Coronavirus screen: Client presents with at least one sign or symptom that may indicate coronavirus-19. Ebola Screen: Patient negative for fever greater than or equal to 101.5 degrees Fahrenheit, and additional compatible Ebola Virus Disease symptoms Patient denies exposure to infectious person. Patient denies travel to an Ebola-affected area in the 21 days before illness onset. No symptoms or risks identified at this time. Initial Sepsis Screen: Does the patient meet any 2 criteria? No. Patient's initial sepsis screen is negative. Does the patient have a suspected source of infection? No. Patient's initial sepsis screen is negative. Risk Assessment: Do you want to hurt yourself or someone else? Patient reports no desire to harm self or others. Onset of symptoms was November 17, 2021. 18:57 Method Of Arrival: Ambulatory iw 18:57 Acuity: SANDRA 3 iw Historical: - Allergies: 18:59 NKDA; iw - Home Meds: 18:59 metformin 500 mg Oral tr24 2 tabs once daily [Active]; atorvastatin 40 mg Oral tab 1 iw tab once daily [Active]; Eliquis oral [Active]; zpack [Active]; Prednisone Oral [Active]; - PMHx: 18:59 Diabetes - NIDDM; CAD; Hypertension; iw - PSHx: 18:59 triple bypass; iw - Immunization history:: Client reports having NOT received the Covid vaccine. - Social history:: Smoking status: Patient denies any tobacco usage or history of. Screenin:18 Abuse screen: Denies threats or abuse. Denies injuries from another. Nutritional as6 screening: No deficits noted. Tuberculosis screening: No symptoms or risk factors identified. Fall Risk None identified. Assessment: 21:17 General: Appears in no apparent distress. Behavior is calm. Pain: Complains of pain in as6 abdomen. Respiratory: Reports cough that is dry. GI: Reports lower abdominal pain, upper abdominal pain. Vital Signs: 18:57 BP 102 / 77; Pulse 97; Resp 16; Temp 99.1; Pulse Ox 100% on R/A; iw 21:14 BP 126 / 77; Pulse 108; Resp 18 S; Temp 98.0(TE); Pulse Ox 99% on R/A; as6 ED Course: 17:51 Patient arrived in ED. as 18:59 Triage completed. iw 19:00 Arm band placed on. iw 19:03 Danielle Gaitan RN is Primary Nurse. iw 19:03 Ace Luther PA is PHCP. iw 19:03 Moise Kilpatrick MD is Attending Physician. iw 19:08 Initial lab(s) drawn, by me, sent to lab. Inserted saline lock: 22 gauge in left kj1 antecubital area, using aseptic technique. Blood collected. 19:15 Primary Nurse role handed off by Danielle Gaitan, RN mw2 19:47 US Abdomen Limited In Process Unspecified. EDMS 20:14 XRAY Chest (1 view) In Process Unspecified. EDMS 21:18 No provider procedures requiring assistance completed. IV discontinued, intact, as6 bleeding controlled, No redness/swelling at site. Pressure dressing applied. 21:19 Patient has correct armband on for positive identification. as6 Administered Medications: No medications were administered Outcome: 21:07 Discharge ordered by . rigo 21:18 Discharged to home ambulatory. as6 21:18 Condition: stable 21:18 Discharge instructions given to patient, Instructed on discharge instructions, follow up and referral plans. medication usage, Demonstrated understanding of instructions, follow-up care, medications, Prescriptions given X 1. 21:19 Patient left the ED. as6 Signatures: Dispatcher [employer] EDMS Neha Miller as Danielle Gaitan, LAYTON TRAYLOR Ace Luther PA PA jr8 Franko Moyer mw2 Corrina Valladares kj1 Rusty Hansen RN RN as6
[2021-11-17 21:23] LABS: Bilirubin Direct 0.2 mg/dL (0-0.2); Bilirubin Total 0.5 mg/dL (0.2-1.0); Protein, Total 7.3 g/dL (6.4-8.2)
[2021-11-17 21:31] VITALS: BP 126/77; TEMP 98; O2SAT 99
== END 2021-11-17 21:19 | disposition home or self-care (01) ==
LOC: ER 17:43
DX: U07.1 COVID-19 (principal); I10 Essential (primary) hypertension; E11.9 Type 2 diabetes mellitus without complications; Z79.01 Long term (current) use of anticoagulants; Z95.1 Presence of aortocoronary bypass graft
CPT/HCPCS: 85025; 80048; 36415; 80076; 83690; 71045; 76705; 99284; U0003